=== PATIENT | female | born 1960 | race Caucasian/White ===

== ENCOUNTER 2016-10-25 11:03 | Emergency (ER) | payer OTHER ==
[~2016-10-25] VITALS: Ht 170.2 cm; Wt 75.4 kg
[~2016-10-25 11:03] MED LIST: AZEL30SP NAE; BUDE0.09 PO; CETI10TA84 PO; CLR10 PO; COLE1TAB5 PO; DILT-113 PO; FERR325T5 PO
[2016-10-25 11:11] VITALS: TEMP 36.8; Ht 170.2 cm; Wt 75.4 kg
[2016-10-25] MEDS ORDERED: RANI150T2 PO (11:45)
[2016-10-25] MEDS ORDERED: WLLXL300 PO (11:45)
[2016-10-25] MEDS ORDERED: FLUO20CA36 PO (11:45)
[2016-10-25] MEDS ORDERED: ADAL40KI PO (11:45)
[2016-10-25] MEDS ORDERED: ONDANSETRON INJ 2 MG/ML 2 ML VIAL IV STA (11:52)
[2016-10-25] MEDS ORDERED: MECLIZINE HCL 25 MG TAB PO STA (11:52)
[2016-10-25] MEDS ORDERED: SODIUM CHLORIDE 0.9% 1000ML 1,000 ML IV STA (11:52)
[2016-10-25 12:28] LABS: BASO % 0.2 %; BASO ABS # 0.02 K/uL (0-0.2); COMPLETE YES; EOS % 0.1 %; HEMATOCRIT 43.6 % (37-47); IG% 0.3 %; LYMPH % 11.6 %; LYMPH ABS # 1.15 K/uL (1.2-3.4); MEAN CELL VOLUME 87.4 fL (80-100); MEAN CORPUSCULAR HEMOGLOBIN 29.3 pg (25-34); MEAN CORPUSCULAR HGB CONC 33.5 g/dl (32-36); MEAN PLATELET VOLUME 10.3 fL (7.4-10.4); NEUT % 85.8 %; PLATELET COUNT 224 K/uL (130-400); RED BLOOD COUNT 4.99 M/uL (4.2-5.4); WHITE BLOOD COUNT 9.93 K/uL (4.8-10.8)
[2016-10-25 12:57] LABS: BUN/CREATININE RATIO 16.1 (10-20)
[2016-10-25] MEDS ORDERED: MECL1TAB42 PO (13:10)
--- NOTE | 2016-10-25 13:11 | EMERGENCY ROOM VISIT NOTE ---
History First contact with patient: 11:45 Chief Complaint: VOMITING Stated Complaint: NAUSEA/VOMITING Nursing Triage Summary: Patient arrived via BLS. Patient was going to work this AM at approximately 0930 had sudden onset of N/V x3. Patient had diarrhea x3. Patient has hx of crohns. Denies CP and SOB. History of Present Illness The patient is a 56 year old female who presents to the Emergency Room via BLS with complaints of dizziness, nausea, vomiting. The patient states that she was going to work at approximately 9:30 this morning and had a sudden onset of dizziness and then had nausea and vomiting 3. The patient also states that she had 3 loose bowel movements but that is not abnormal for her since she has Crohn's disease. The patient denies any abdominal pain, fever. 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 She has never had vertigo in the past. The patient denies any chest pain or shortness of breath. Review of Systems 10 system review was performed and was negative unless stated otherwise history of present illness. Past Medical/Surgical History Crohn's disease Social History Smoking Status: Never Smoker Marital Status: Housing Status: lives with family Occupation Status: employed Current/Historical Medications Scheduled Adalimumab (Humira Pen), 0.8 ML PO Q2WKS Azelastine Hcl-Fluticasone Pro (Dymista), 1 SPRY [place]IL[place] BID Bupropion HCl (Bupropion HCl Xl), 300 MG PO DAILY Cetirizine (Zyrtec), 10 MG PO DAILY Colestipol Hcl (Colestipol Hcl), 1 TAB PO BID Diltiazem Hcl Ext Rel (Tiazac), 180 MG PO QAM Ferrous Sulfate (Ferrous Sulfate), 1 TAB PO BID Ranitidine HCl (Ranitidine HCl), 150 MG PO BID Scheduled PRN Loratadine (Claritin), 10 MG PO DAILY PRN for ALLERGIES Physical Exam Vital Signs Date Time Temp Pulse Resp B/P (MAP) Pulse Ox O2 Delivery O2 Flow Rate FiO2 10/25/16 12:31 86 18 156/69 98 Room Air 10/25/16 11:11 36.8 84 18 155/93 97 Room Air Physical Exam GENERAL: Patient is alert oriented she is actively vomiting. MENTAL STATUS: Alert and oriented 3. EYES: PERRLA. EOMs intact. EARS: Canals clear. TMs without fluid level noted. NECK: Supple, no lymphadenopathy noted. No carotid bruits noted. LUNGS: Clear auscultation without wheezes rales or rhonchi. CARDIAC: Regular rate and rhythm without murmur. Pulses is full and equal throughout. ABDOMEN: Positive bowel sounds all 4 quadrants. Soft, nontender to palpation without organomegaly or masses. NEURO: Grossly intact Medical Decision & Procedures Laboratory Results 10/25/16 12:08 Red Blood Count 4.99, Mean Corpuscular Volume 87.4, Mean Corpuscular Hemoglobin 29.3, Mean Corpuscular Hemoglobin Concent 33.5, Mean Platelet Volume 10.3, Neutrophils (%) (Auto) 85.8, Lymphocytes (%) (Auto) 11.6, Monocytes (%) (Auto) 2.0, Eosinophils (%) (Auto) 0.1, Basophils (%) (Auto) 0.2, Neutrophils # (Auto) 8.52, Lymphocytes # (Auto) 1.15, Monocytes # (Auto) 0.20, Eosinophils # (Auto) 0.01, Basophils # (Auto) 0.02 10/25/16 12:08 Test 10/25/16 12:08 White Blood Count 9.93 K/uL (4.8-10.8) Red Blood Count 4.99 M/uL (4.2-5.4) Hemoglobin 14.6 g/dL (12.0-16.0) Hematocrit 43.6 % (37-47) Mean Corpuscular Volume 87.4 fL (80-100) Mean Corpuscular Hemoglobin 29.3 pg (25-34) Mean Corpuscular Hemoglobin Concent 33.5 g/dl (32-36) Platelet Count 224 K/uL (130-400) Mean Platelet Volume 10.3 fL (7.4-10.4) Neutrophils (%) (Auto) 85.8 % Lymphocytes (%) (Auto) 11.6 % Monocytes (%) (Auto) 2.0 % Eosinophils (%) (Auto) 0.1 % Basophils (%) (Auto) 0.2 % Neutrophils # (Auto) 8.52 K/uL (1.4-6.5) Lymphocytes # (Auto) 1.15 K/uL (1.2-3.4) Monocytes # (Auto) 0.20 K/uL (0.11-0.59) Eosinophils # (Auto) 0.01 K/uL (0-0.5) Basophils # (Auto) 0.02 K/uL (0-0.2) RDW Standard Deviation 42.3 fL (36.4-46.3) RDW Coefficient of Variation 13.2 % (11.5-14.5) Immature Granulocyte % (Auto) 0.3 % Immature Granulocyte # (Auto) 0.03 K/uL (0.00-0.02) Anion Gap 7.0 mmol/L (3-11) Est Creatinine Clear Calc Drug Dose 66.6 ml/min Estimated GFR () 72.9 Estimated GFR (Non- 62.9 BUN/Creatinine Ratio 16.1 (10-20) Calcium Level 9.0 mg/dl (8.5-10.1) Total Bilirubin 0.6 mg/dl (0.2-1) Direct Bilirubin 0.1 mg/dl (0-0.2) Aspartate Amino Transf (AST/SGOT) 30 U/L (15-37) Alanine Aminotransferase (ALT/SGPT) 33 U/L (12-78) Alkaline Phosphatase 76 U/L (45-117) Total Protein 7.7 gm/dl (6.4-8.2) Albumin 4.0 gm/dl (3.4-5.0) Lipase 104 U/L (73-393) Medications Administered Medications (Trade) Dose Ordered Sig/Zana Route Start Time Stop Time Status Last Admin Dose Admin Sodium Chloride 1,000 ml @ 999 mls/hr Q1H1M STAT IV 10/25/16 11:52 10/25/16 12:52 DC 10/25/16 12:30 999 MLS/HR Ondansetron HCl (Zofran Inj) 4 mg NOW STAT IV 10/25/16 11:52 10/25/16 11:54 DC 10/25/16 12:30 4 MG Meclizine HCl (Antivert Tab) 25 mg NOW STAT PO 10/25/16 11:52 10/25/16 11:54 DC 10/25/16 12:30 25 MG ED Course The patient was evaluated. The patient's EMR medication list were reviewed. IV access was obtained. The patient was given 1 L normal saline wide-open. The patient was given Zofran 4 mg IV and Antivert 25 mg by mouth. CBC and differential, renal profile, LFTs and lipase levels were ordered. Labs are reviewed and were unremarkable. The patient was reevaluated was feeling much better. The patient was discharged home in stable condition. Medical Decision Differential diagnosis include viral gastroenteritis, vertigo, acute labyrinthitis [place] [facility] Monitoring [facility] Search Results: patient reviewed within database Medication Reconcilliation Current Medication List: was personally reviewed by me Blood Pressure Screening Patient's blood pressure: Elevated blood pressure Blood pressure disposition: Elevated BP felt to be situational Impression Primary Impression: Vertigo Additional Impression: Vomiting Departure Information Dispostion Home / Self-Care Condition GOOD Prescriptions Meclizine Hcl (MECLIZINE HCL) 25 Mg Tab 1 TAB PO TID Y for Dizziness or Vertigo for 10 Days, #30 TAB Prov: Cristina Killian PA-C 10/25/16 Referrals Darnell Kevin M.D. (PCP) Forms HOME CARE DOCUMENTATION FORM, IMPORTANT VISIT INFORMATION Patient Instructions My [facility] Additional Instructions Keep her head still as possible. Take meclizine as needed for dizziness which also prevent nausea and vomiting. Off work for 2 days. If symptoms persist, follow-up with your family physician for further evaluation. Work Instructions Return To Work: 2 days Problem Qualifiers Additional Impression: Vomiting Vomiting type: unspecified Vomiting Intractability: unspecified Nausea presence: with nausea Qualified Codes: R11.2 - Nausea with vomiting, unspecified
[2016-10-25 13:30] VITALS: BP 143/78; PULSE 88; O2SAT 100
== END 2016-10-25 13:32 | disposition home or self-care (01) ==
LOC: EDBD 11:03 → C.EDC 11:03
DX: R42 Dizziness and giddiness (principal); R11.10 Vomiting, unspecified; K50.90 Crohn's disease, unspecified, without complications; Z79.899 Other long term (current) drug therapy

== ENCOUNTER → 2017-06-23 | Day surgery (SDC) | payer OTHER ==
[2017-06-05 12:54] VITALS: Ht 170.2 cm; Wt 72.7 kg
[~2017-06-23] VITALS: Ht 170.2 cm; Wt 72.7 kg
[~2017-06-23] MED LIST changes: +ADAL40KI PO; -AZEL30SP NAE; -BUDE0.09 PO; -DILT-113 PO; +DILT120C68 PO; +LIDOCAINE HCL 2% 2 ML VIAL (20MG/ML) ONE; +MULT1CAP7; +PROPOFOL IV EMULSION 10 MG/ML 20 ML VIAL IV ONE; +RANI150T2 PO; +SODIUM CHLORIDE 0.9% 500ML 500 ML IV ONE; +WLLXL300 PO
--- NOTE | 2017-06-23 08:25 | Endo History and Physical ---
History & Physical Date of Service: Jun 23, 2017. Chief Complaint: Crohn's disease Referring Physician: Dr. Kevin History of Present Illness 57 yo CF who presents for colonoscopy secondary to Crohn's Disease. Past Medical History Arthritis, Gastrointestinal Disorder, Anxiety, Reflux, Heart Disease, Hypertension, Kidney Disease, Depression Past Surgical History Hx Cardiac Surgery: No Hx Internal Defibrillator: No Hx Pacemaker: No Hx Abdominal Surgery: Yes (RECTAL FISTULA REPAIR, COLON RESECTION) Hx of Implantable Prosthesis: No Hx Post-Op Nausea and Vomiting: No Hx Cancer Surgery: No Hx Thoracic Surgery: No Hx Orthopedic: Yes (LUMBAR SURGERY X2) Hx Urinary Tract Surgery: No Family History None Social History Smoking Status: Never Smoker Hx Substance Use: No Hx Alcohol Use: No Allergies Coded Allergies: Nitrofurantoin (Verified Allergy, Unknown, PT DOES NOT REMEMBER REACTION, 06/05/17) Propoxyphene (Verified Allergy, Unknown, CAN TAKE TYLENOL, 06/05/17) Sulfa Antibiotics (Verified Allergy, Unknown, PT DOES NOT REMEMBER REACTION, 06/23/17) Trimethoprim (Verified Allergy, Unknown, ., 06/05/17) Meperidine (Verified Adverse Reaction, Mild, NAUSEA, 06/23/17) Oxycodone (Verified Adverse Reaction, Mild, NAUSEA, 06/23/17) Current Medications Reported Home Medications Medications Dose Route/Sig Max Daily Dose Days Date Category Tiazac (Diltiazem HCl) 120 Mg Capcr 120 Mg PO QAM 06/05/17 Reported Humira Pen (Adalimumab) 40 Mg/0.8 Ml Kit 0.8 Ml PO Q2WKS 10/25/16 Reported Bupropion HCl Xl (Bupropion HCl) 300 Mg Tabcr 300 Mg PO QAM 10/25/16 Reported Ranitidine HCl 150 Mg Tab 150 Mg PO BID 10/25/16 Reported Zyrtec (Cetirizine HCl) 10 Mg Tab 10 Mg PO DAILY 06/19/15 Reported Colestipol Hcl 1 Gm Tab 1 Tab PO BID 05/29/15 Reported Ferrous Sulfate 325 Mg Tab 1 Tab PO BID 05/29/15 Reported Claritin (Loratadine) 10 Mg Tab 10 Mg PO DAILY PRN 09/09/13 Reported Vital Signs Weight (Kilograms): 72.73 Height (Feet): 5 Height (Inches): 7 Physical Exam General Appearance: WD/WN, no apparent distress Respiratory/Chest: Auscultation: breath sounds normal Cardiovascular: Heart Auscultation: RRR Abdomen: Bowel Sounds: normal Inspection & Palpation: soft, non-distended, no tenderness, guarding & rebound Assessment and Plan Assessment: 57 yo CF who presents for colonoscopy secondary to Crohn's disease. Plan: Proceed with colonoscopy.
--- NOTE | 2017-06-23 09:05 | GI REPORT ---
Procedure Date: 06/23/2017 8:33 AM Procedure: Colonoscopy Indications: Crohn's disease of the small bowel Medicines: Monitored Anesthesia Care Complications: No immediate complications. Estimated Blood Loss: Estimated blood loss: none. Procedure: Pre-Anesthesia Assessment: - Prior to the procedure, a History and Physical was performed, and patient medications and allergies were reviewed. The patient's tolerance of previous anesthesia was also reviewed. The risks and benefits of the procedure and the sedation options and risks were discussed with the patient. All questions were answered, and informed consent was obtained. Prior Anticoagulants: The patient has taken no previous anticoagulant or antiplatelet agents. ASA Grade Assessment: II - A patient with mild systemic disease. After reviewing the risks and benefits, the patient was deemed in satisfactory condition to undergo the procedure. After I obtained informed consent, the scope was passed under direct vision. Throughout the procedure, the patient's blood pressure, pulse, and oxygen saturations were monitored continuously. The scope was introduced through the anus and advanced to the ileocolonic anastomosis. The colonoscopy was performed without difficulty. The patient tolerated the procedure well. The quality of the bowel preparation was good. The terminal ileum and the rectum were photographed. Findings: The perianal and digital rectal examinations were normal. There was evidence of a prior end-to-side ileo-colonic anastomosis in the ascending colon. This was patent and was characterized by ulceration. The anastomosis was traversed. This was biopsied with a cold forceps for histology. Impression: - Patent end-to-side ileo-colonic anastomosis, characterized by ulceration. Biopsied. Recommendation: - Resume previous diet. - Continue present medications. - Repeat colonoscopy for surveillance based on pathology results. - Return to primary care physician as previously scheduled. Vahid Beckwith DO 06/23/2017 9:05:09 AM This report has been signed electronically. Note Initiated On: 06/23/2017 8:33 AM I attest to the content of the Intraoperative Record and orders documented therein, exceptions below
--- NOTE | 2017-06-23 09:07 | Discharge Instructions ---
Endoscopy Patient Instructions Date / Procedure(s) Performed Jun 23, 2017. Colonoscopy Allergy Information Coded Allergies: Nitrofurantoin (Verified Allergy, Unknown, PT DOES NOT REMEMBER REACTION, 06/23/17) Propoxyphene (Verified Allergy, Unknown, CAN TAKE TYLENOL, 06/23/17) Sulfa Antibiotics (Verified Allergy, Unknown, PT DOES NOT REMEMBER REACTION, 06/23/17) Trimethoprim (Verified Allergy, Unknown, ., 06/23/17) Meperidine (Verified Adverse Reaction, Mild, NAUSEA, 06/23/17) Oxycodone (Verified Adverse Reaction, Mild, NAUSEA, 06/23/17) Discharge Date / Findings Jun 23, 2017. Ulcer at ileocolonic anastomosis Crohn's Ileitis Medication Instructions OK to resume all medications today as prescribed Reported Home Medications Medications Dose Route/Sig Max Daily Dose Days Date Category Multi For Her 50+ (Multiple Vitamins W/ Minerals) 1 Cap Cap 06/23/17 Reported Tiazac (Diltiazem HCl) 120 Mg Capcr 120 Mg PO QAM 06/05/17 Reported Humira Pen (Adalimumab) 40 Mg/0.8 Ml Kit 0.8 Ml PO Q2WKS 10/25/16 Reported Bupropion HCl Xl (Bupropion HCl) 300 Mg Tabcr 300 Mg PO QAM 10/25/16 Reported Ranitidine HCl 150 Mg Tab 150 Mg PO BID 10/25/16 Reported Zyrtec (Cetirizine HCl) 10 Mg Tab 10 Mg PO DAILY 06/19/15 Reported Colestipol Hcl 1 Gm Tab 1 Tab PO BID 05/29/15 Reported Ferrous Sulfate 325 Mg Tab 1 Tab PO BID 05/29/15 Reported Claritin (Loratadine) 10 Mg Tab 10 Mg PO DAILY PRN 09/09/13 Reported Provider Instructions Activity Restrictions - No exercising or heavy lifting for 24 hours. - Do not drink alcohol the day of the procedure. - Do not drive a car or operate machinery until the day after the procedure. - Do not make any important decisions or sign important papers in 24 hours after the procedure. Following Day: - Return to full activity which may include returning to work/school. Diet Start your diet with liquids and light foods (jello, soup, juice, toast). Then eat your usual diet if not nauseated. Treatment For Common After Affects For mild abdominal pain, bloating, or excessive gas: - Rest - Eat lightly - Lie on right side Follow-Up Information Follow-up with Darnell Kevin as scheduled Anesthesia Information What You Should Know You have had a procedure that required some medicine to reduce anxiety and discomfort. This treatment is called moderate sedation. After receiving the treatment, you may be sleepy, but you will be able to breathe on your own. The effects of the treatment may last for several hours. Follow these instructions along with Activity/Diet recommendations noted above: * Do NOT do anything where dizziness or clumsiness would be dangerous. * Rest quietly at home today, then you can be up and about tomorrow. * Have a responsible person stay with you the rest of today. * You may have had an I.V. today. If so, you may take the dressing off later today. Recommendations Call your doctor if: * Trouble breathing * Continuous vomiting for more than 24 hours * Temperature above 101 degrees * Severe abdominal pain or bloating * Pain not relieved by pain medicine ordered * There is increased drainage or redness from any incision * A large amount of rectal bleeding greater than 2-3 tablespoons. (If you had a polyp/s removed or have hemorrhoids, a small amount of blood - from the rectum is to be expected.) * You have any unanswered questions or concerns. IN THE EVENT OF A SERIOUS EMERGENCY, GO TO THE NEAREST EMERGENCY ROOM Your discharge instructions were prepared by provider Vahid Beckwith. Patient Instructions Signature Page Mary Kate Cabello Patient (or Guardian) Signature/Date: I have read and understand the instructions given to me by my caregivers. Caregiver/RN/Doctor Signature/Date: The above-named patient and/or guardian has received patient instructions on this date. + Original Patient Signature Page (only) stays with chart. Please make copy for patient.
[2017-06-23 09:34] VITALS: BP 137/79; PULSE 78; O2SAT 100
--- NOTE | 2017-06-23 09:52 | Anesthesiology Progress Note ---
Anesthesia Post Op Note Date & Time Jun 23, 2017 at 09:52 Vital Signs Pain Intensity: 0 Vital Signs Past 12 Hours Date Time Temp Pulse Resp B/P (MAP) Pulse Ox O2 Delivery O2 Flow Rate FiO2 06/23/17 09:34 78 18 137/79 (98) 100 Room Air 06/23/17 09:15 79 18 134/96 (109) 100 Room Air 06/23/17 09:03 36.7 93 16 104/70 (81) 100 Room Air 06/23/17 08:37 37.0 82 18 154/73 (100) 99 Room Air Notes Mental Status: alert / awake / arousable, participated in evaluation Pt Amnestic to Procedure: Yes Nausea / Vomiting: adequately controlled Pain: adequately controlled Airway Patency, RR, SpO2: stable & adequate BP & HR: stable & adequate Hydration State: stable & adequate Anesthetic Complications: no major complications apparent
== END | disposition home or self-care (01) ==
LOC: C.GI 07:58
PROVIDERS: ATTEND Internal Medicine
DX: K50.90 Crohn's disease, unspecified, without complications (principal); M19.90 Unspecified osteoarthritis, unspecified site; F41.9 Anxiety disorder, unspecified; K21.9 Gastro-esophageal reflux disease without esophagitis; I10 Essential (primary) hypertension; N18.9 Chronic kidney disease, unspecified; F32.9 Major depressive disorder, single episode, unspecified; Z88.2 Allergy status to sulfonamides; Z88.5 Allergy status to narcotic agent; Z88.1 Allergy status to other antibiotic agents

== ENCOUNTER 2021-12-09 11:48 | Observation (INO) ==
[2021-12-09] MEDS ORDERED: SODIUM CHLORIDE 0.9% 500 ML IV STA (12:04)
[2021-12-09 13:07] LABS: Troponin I High Sensitivity 6.6 pg/ml (0-14)
[2021-12-09 13:13] LABS: Basophils # (auto) 0.03 K/uL (0-0.2); Basophils % (auto) 0.4 %; Eosinophils # (auto) 0.01 K/uL (0-0.50); Eosinophils % (auto) 0.1 %; Hematocrit (blood only) 42.6 % (34.1-44.9); Hemoglobin 14.3 g/dl (12.0-16.0); Immature Granulocytes # (auto) 0.05 K/uL (0.00-0.02); Immature Granulocytes % (auto) 0.7 %; Lymphocytes # (auto) 1.47 K/uL (1.2-3.4); Lymphocytes % (auto) 19.4 %; Mean Corpuscular Hemoglobin 29.7 pg (25.0-34.0); Mean Corpuscular Hgb Conc 33.6 g/dL (32.0-36.0); Mean Corpuscular Volume 88.6 fL (80.0-100.0); Mean Platelet Volume 9.8 fL (9.4-12.3); Monocytes # (auto) 0.46 K/uL (0.24-0.82); Monocytes % (auto) 6.1 %; Neutrophils # (auto) 5.55 K/uL (1.4-6.5); Neutrophils % (auto) 73.3 %; Platelet Count 207 K/uL (130-400); RDW Coefficient of Variation 12.6 % (11.5-14.5); RDW Standard Deviation 41.3 fL (36.4-46.3); Red Blood Count 4.81 M/uL (3.93-5.22); White Blood Count 7.57 K/ul (4.8-10.8)
[2021-12-09 13:59] LABS: Appearance Urine Clear (Clear); Bacteria Urine Automated Negative (Negative); Bilirubin Urine Negative (Negative); Blood Urine 2+ (Negative); Cast Urine Automated 0 /lpf (0-5); Color Urine Yellow; Glucose Urine UA Negative (Negative); Ketones Urine Trace (Negative); Leukocyte Esterase Urine Trace (Negative); Nitrite Urine Negative (Negative); Protein Urine Negative (Negative); Specific Gravity Urine 1.011 (1.000-1.030); Urobilinogen Urine Negative (Negative); pH Urine 5.5 (4.5-7.5)
[2021-12-09 14:12] LABS: Alanine Aminotransferase 16 U/L (7-52); Albumin Globulin Ratio 1.1 (0.9-2); Alkaline Phosphatase 54 U/L (34-104); Anion Gap 16 (3-11); Aspartate Aminotransferase 22 U/L (13-39); BUN Creatinine Ratio 21.3 (10-20); Bilirubin,Total 0.7 mg/dl (0.2-1.0); Blood Urea Nitrogen 19 mg/dl (6-23); C Reactive Protein < 0.50 mg/dl (0-0.5); Calcium 9.2 mg/dl (8.5-10.1); Carbon Dioxide 17 mmol/L (21-32); Chloride 105 mmol/L (98-107); Creatinine Clr Calc Pharmacy 64.6 ml/min; Est GFR (African American) 81.1 ml/min; Globulin 3.8 gm/dl (2.5-4.0); Glucose 98 mg/dl (70-99(Fasting)); Lipase 39 U/L (11-82); Potassium 3.4 mmol/L (3.5-5.1); Sodium 138 mmol/L (136-145); Total Protein 7.8 gm/dl (6.0-8.3)
[2021-12-09] MEDS ORDERED: OPTIRAY 350 100ml IV ONE (14:27)
--- NOTE | 2021-12-09 14:30 | Emergency Department Note ---
Impression & Plan Nausea, vomiting and diarrhea, Crohns disease ED Provider Note Provider: Nirav Dumont MD DATE OF SERVICE: 12/09/2021 CHIEF COMPLAINT: Nausea, diarrhea, weakness HISTORY OF PRESENT ILLNESS: Patient is a 61-year-old female history of Crohn's disease Mr. Abhi Wise last day or 2 secondary to illness. Begin to have illness symptoms this past week with nausea and vomiting developed diarrhea overnight. No blood in this. States the vomit has been green at times. Denies significant abdominal pain. Reports some subjective fever and chills. Denies chest pain or shortness of breath to me. Feels generally weak. No sick contacts reported. Received some Zofran and IV fluid in route and states she is feeling a bit better with this but still quite weak. EMS report the patient did have some episode of bigeminy in route. Does relate some urinary symptoms. REVIEW OF SYSTEMS: A total of 10 review of systems was obtained and negative except as stated above in the HPI. PAST MEDICAL HISTORY: As noted above MEDICATIONS: Medications reviewed SOCIAL HISTORY: Lives at home with PHYSICAL EXAM: GENERAL: alert and oriented in no acute distress on stretcher resting with eyes closed Head: normocephalic and atraumatic EYES: No injection, discharge or icterus. NECK: Trachea midline. ENT: Mucous membranes pink and moist. LUNGS: Airway patent. No retractions. Breath sounds clear HEART: Regular rate and rhythm. No chest wall tenderness ABDOMEN: Soft and non-tender, without guarding or rebound. SKIN: Acyanotic, warm, dry, without rashes EXTREMITIES: Without swelling, tenderness or deformity NEUROLOGICAL: No focal deficits. No aphasia. No facial droop or slurred speech. EK bpm NSR with a PVC noted without acute ST segment elevation and some nonspecific inferior lateral T wave changes. QTc 439. CONTINUOUS CARDIAC MONITORING: was ordered and showed a heart rate of 60s-70s bpm in normal sinus rhythm Patient's laboratory studies and imaging reviewed. Differential includes gastrointestinal, infection, dehydration, metabolic abnormality, hypo/hyperglycemia, electrolyte disturbance, anemia, hypoxia, cardiac sources, intracerebral event, toxicologic, neurologic, as well as other pathologies. IMPRESSION/MEDICAL DECISION MAKING: Patient with significant history of Crohn's disease. Inflammatory markers and CT of the abdomen pelvis will be obtained. ESR and CRP not significantly elevated. Urinalysis even with urinary symptoms is not that impressive. Negative COVID test. No evidence of hepatitis or pancreatitis. Some slight anion gap is noted without evidence of acute kidney injury. Question some dehydrated state and given IV fluids here. No significant anemia or leukocytosis on blood work. 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 No significant evidence of this here noted. No troponin elevation. CT scan of the abdomen pelvis per radiology questions a nonspecific colitis without bowel obstruction noted. Stool culture is pending. Doubt this is Crohn's given lack of inflammatory marker elevation. Discussed with GI who agrees and will defer any steroids at this point. Does not report significant risk factors at this time for C. difficile. Patient not tolerating oral intake well and she states she is still nauseous and does not feel that she is throwing up to go home. Discussed with her possible options of outpatient trial of therapy versus observation. Per her wishes the hospitalist was contacted. DIAGNOSIS: Gastroenteritis DISPOSITION: Hospitalist will evaluate Patient was agreeable with this plan. Past Med/Surg History Medical History (Updated 12/09/21 @ 19:14 by Nirav Dumont M.D.) Anxiety Chronic back pain Chronic kidney disease stage 3 -- follows with Nephrology [facility] ([place], [place]) Crohns disease Depression GERD (gastroesophageal reflux disease) Hypertension Scoliosis Vertigo hx Surgical History (Updated 12/09/21 @ 17:43 by Dayan Palacio PA-C) History of back surgery History of colonoscopy History of esophagogastroduodenoscopy (EGD) History of partial colectomy 2012 [facility] [place] 2/2 crohns S/P cholecystectomy S/P small bowel resection 1982 2 ft removed Family History (Updated 12/09/21 @ 17:43 by Dayan Palacio PA-C) Daughter Diabetes Nephrolithiasis Father Pancreatic cancer Social History Smoking Status: Never smoker Second Hand Exposure: No; Hx Alcohol Use: No Hx Substance Use: No Preferred Language: Iranian Communication Ability: Effective Reel Repairer Required: No Beliefs That Will Affect Care: None marital status: Current Living Situation: Spouse current occupational status: employed Feels Safe at Home: Yes Allergies Allergies Allergy/AdvReac Type Severity Reaction Status Date / Time aspirin Allergy Severe TRIGGER Verified 12/09/21 12:06 [employer] nitrofurantoin Allergy Unknown Unknown Verified 12/09/21 12:06 propoxyphene Allergy Unknown CAN TAKE Verified 12/09/21 12:06 TYLENOL Sulfa (Sulfonamide Allergy Unknown PT DOES Verified 12/09/21 12:06 Antibiotics) NOT REMEMBER REACTION trimethoprim Allergy Unknown Unknown Verified 12/09/21 12:06 meperidine AdvReac Mild NAUSEA Verified 12/09/21 12:06 oxycodone AdvReac Mild Unknown Verified 12/09/21 12:06 hydrocodone AdvReac Unknown Unknown Verified 12/09/21 12:06 sulfamethoxazole AdvReac Unknown Unknown Verified 12/09/21 12:06 [From ] Home Meds Home Medications Medication Instructions Recorded Confirmed cranberry 400 mg capsule 400 mg PO DAILY PRN UTI 01/26/18 12/09/21 [id number] 1 tab PO QAM 01/26/18 12/09/21 tablet (Multivitamin 50 Plus tablet) clonazepam 0.5 mg tablet (Klonopin) 0.5 mg PO HS PRN Anxiety 10/25/19 12/09/21 diltiazem HCl 180 mg capsule,24 180 mg PO QAM 10/25/19 12/09/21 hr,extended release ferrous sulfate 325 mg (65 mg 325 mg PO DAILY 10/25/19 12/09/21 iron) tablet metoprolol succinate 25 mg 25 mg PO HS 10/25/19 12/09/21 tablet,extended release 24 hr potassium chloride 10 mEq 10 meq PO QAM 10/25/19 12/09/21 tablet,extended release (Klor-Con) calcium carbonate 600 mg-vitamin 1 tab PO DAILY 12/09/21 12/09/21 D3 10 mcg (400 unit) tablet (Calcium 600 + D(3)) cetirizine 10 mg tablet (Allergy 10 mg PO DAILY 12/09/21 12/09/21 Relief (cetirizine)) cholecalciferol (vitamin D3) 125 125 mcg PO DAILY 12/09/21 12/09/21 mcg (5,000 unit) capsule cyanocobalamin (vitamin B-12) 1,000 mcg PO QAM 12/09/21 12/09/21 1,000 mcg tablet (Vitamin B-12) dicyclomine 10 mg capsule 10 mg PO BID 12/09/21 12/09/21 omega 1-hzw-dkj-fish oil 1,200 mg 1 cap PO BID 12/09/21 12/09/21 (144 mg-216 mg) capsule (Fish Oil) pantoprazole 40 mg tablet,delayed 40 mg PO QAM 12/09/21 12/09/21 release tolterodine 2 mg capsule,extended 2 mg PO QAM 12/09/21 12/09/21 release 24 hr venlafaxine 75 mg capsule,extended 75 mg PO DAILY 12/09/21 12/09/21 release 24 hr zinc gluconate 50 mg tablet 50 mg PO QAM 12/09/21 12/09/21 Previous Rx's Medication Instructions Recorded Humira(CF) Pen 40 mg/0.4 mL 40 mg (0.4 mL) subcut .weekly #2 ea 02/19/21 subcutaneous kit (adalimumab) diphenoxylate-atropine 2.5 1 tab PO .COMPLEX PRN diarrhea 04/17/21 mg-0.025 mg tablet (Lomotil) #360 tabs colesevelam 625 mg tablet (WelChol) 2,500 mg PO QPM #360 tabs 12/06/21 Results & Data (ED) Vital Signs Vital Signs - 24 hr 12/09/21 11:59 12/09/21 15:20 12/09/21 13:00 Temperature 37.5 C Temperature Source Oral Pulse Rate 74 71 Pulse Rate [Left Finger] 77 Pulse Rhythm Regular Pulse Rhythm [Left Finger] Regular Pulse Strength Normal Pulse Strength [Left Finger] Normal Respiratory Rate 16 16 18 Respiratory Effort / Characteristics Non-Labored Spontaneous Respiratory Depth Normal Respiratory Pattern Regular Blood Pressure 140/75 146/82 H Blood Pressure [Left Arm] 134/72 Blood Pressure Mean 96 103 Blood Pressure Mean [Left Arm] 92 Blood Pressure Position Lying Pulse Oximetry 98 96 98 Oxygen Delivery Method Room Air Room Air Sepsis Recent Fever Within 48 Hours No Sepsis New/Unexplained Change in Mental Status No Sepsis Action Taken by Nursing No Action Required 12/09/21 16:54 12/09/21 17:01 12/09/21 17:30 Temperature Temperature Source Pulse Rate 75 77 71 Pulse Rate [Left Finger] Pulse Rhythm Pulse Rhythm [Left Finger] Pulse Strength Pulse Strength [Left Finger] Respiratory Rate 16 16 16 Respiratory Effort / Characteristics Respiratory Depth Respiratory Pattern Blood Pressure 131/68 139/54 L 139/69 Blood Pressure [Left Arm] Blood Pressure Mean 89 82 92 Blood Pressure Mean [Left Arm] Blood Pressure Position Pulse Oximetry 99 99 97 Oxygen Delivery Method Sepsis Recent Fever Within 48 Hours Sepsis New/Unexplained Change in Mental Status Sepsis Action Taken by Nursing 12/09/21 18:00 Temperature Temperature Source Pulse Rate 68 Pulse Rate [Left Finger] Pulse Rhythm Pulse Rhythm [Left Finger] Pulse Strength Pulse Strength [Left Finger] Respiratory Rate 16 Respiratory Effort / Characteristics Respiratory Depth Respiratory Pattern Blood Pressure 152/78 H Blood Pressure [Left Arm] Blood Pressure Mean 102 Blood Pressure Mean [Left Arm] Blood Pressure Position Pulse Oximetry 99 Oxygen Delivery Method Sepsis Recent Fever Within 48 Hours Sepsis New/Unexplained Change in Mental Status Sepsis Action Taken by Nursing Laboratory Data Result diagrams: 12/09/21 13:00 12/09/21 12:17 Lab Results 12/09/21 12/09/21 12/09/21 Range/Units 12:17 12:17 12:17 WBC Cancelled RBC Cancelled Hgb Cancelled Hct Cancelled MCV Cancelled MCH Cancelled MCHC Cancelled RDW Std Deviation Cancelled RDW Coeff of Phuong Cancelled Plt Count Cancelled MPV Cancelled Immature Gran % (Auto) Cancelled Neut % (Auto) Cancelled Lymph % (Auto) Cancelled [place] % (Auto) Cancelled Eos % (Auto) Cancelled Baso % (Auto) Cancelled Neut # (Auto) Cancelled Lymph # (Auto) Cancelled [place] # (Auto) Cancelled Eos # (Auto) Cancelled Baso # (Auto) Cancelled Immature Gran # (Auto) Cancelled Absolute Nucleated RBC Cancelled Nucleated RBC % (auto) Cancelled Neutrophils % (Manual) Cancelled Band Neutrophils % Cancelled Lymphocytes % (Manual) Cancelled Prolymphocyte % Cancelled Reactive Lymphs % (Man) Cancelled Monocytes % (Manual) Cancelled Eosinophils % (Manual) Cancelled Basophils % (Manual) Cancelled Metamyelocytes % (Man) Cancelled Myelocytes % (Man) Cancelled Promyelocytes % (Man) Cancelled Blast Cells % (Manual) Cancelled Plasma Cell % (Manual) Cancelled Other Cells % Cancelled Nucleated RBC % Cancelled Neutrophils # (Manual) Cancelled Band Neutrophils # Cancelled Total Absolute Neuts Cancelled Lymphocytes # (Manual) Cancelled Prolymphocyte # Cancelled Reactive Lymphs # Cancelled Total Abs Lymphocytes Cancelled Monocytes # (Manual) Cancelled Eosinophils # (Manual) Cancelled Basophils # (Manual) Cancelled Metamyelocytes # (Man) Cancelled Myelocytes # (Manual) Cancelled Promyelocytes # (Man) Cancelled Blast Cells # (Man) Cancelled Plasma Cell # (Manual) Cancelled Other Cells # Cancelled Nucleated RBCs # (Man) Cancelled Hypersegmented Neuts Cancelled Hyposegmented Neuts Cancelled Hypogranular Neuts Cancelled Large Granular Lymphs Cancelled # Lrg Granular Lymphs Cancelled Hairy Cells Cancelled Smudge Cells Cancelled Toxic Granulation Cancelled Toxic Vacuolation Cancelled Dohle Bodies Cancelled Luciana Rods Cancelled Platelet Estimate Cancelled Hypogranular Platelets Cancelled Clumped Platelets Cancelled Giant Platelets Cancelled Platelet Satelliting Cancelled RBC Morphology Cancelled Polychromasia Cancelled Hypochromasia Cancelled Poikilocytosis Cancelled Basophilic Stippling Cancelled Anisocytosis Cancelled Microcytosis Cancelled Macrocytosis Cancelled Spherocytes Cancelled Pappenheimer Bodies Cancelled Sickle Cells Cancelled Target Cells Cancelled Tear Drop Cells Cancelled Ovalocytes Cancelled Stomatocytes Cancelled [place] Bodies Cancelled Echinocytes Cancelled Acanthocytes (Spur) Cancelled Rouleaux Cancelled RBC Agglutinates Cancelled Schistocytes Cancelled ESR Cancelled Sezary Cell Cancelled Sodium 138 (136-145) mmol/L Potassium 3.4 L (3.5-5.1) mmol/L Chloride 105 (98-107) mmol/L Carbon Dioxide 17 L (21-32) mmol/L Anion Gap 16 H (3-11) BUN 19 (6-23) mg/dl Creatinine 0.89 (0.6-1.2) mg/dl Est Cr Clr Drug Dosing 64.6 ml/min Est GFR ( Amer) 81.1 ml/min Est GFR (Non-Af Amer) 70.0 ml/min BUN/Creatinine Ratio 21.3 H (10-20) Glucose 98 (70-99(Fasting)) mg/dl Calcium 9.2 (8.5-10.1) mg/dl Magnesium 2.0 (1.7-2.4) mg/dl Total Bilirubin 0.7 (0.2-1.0) mg/dl AST 22 (13-39) U/L ALT 16 (7-52) U/L Alkaline Phosphatase 54 (34-104) U/L Troponin I High Sens 6.6 (0-14) pg/ml C-Reactive Protein < 0.50 (0-0.5) mg/dl Total Protein 7.8 (6.0-8.3) gm/dl Albumin 4.0 (3.4-5.0) gm/dl Globulin 3.8 (2.5-4.0) gm/dl Albumin/Globulin Ratio 1.1 (0.9-2) Lipase 39 (11-82) U/L Urine Color Urine Appearance (Clear) Urine pH (4.5-7.5) Ur Specific Roberts (1.000-1.030) Urine Protein (Negative) Urine Glucose (UA) (Negative) Urine Ketones (Negative) Urine Blood (Negative) Urine Nitrite (Negative) Urine Bilirubin (Negative) Urine Urobilinogen (Negative) Ur Leukocyte Esterase (Negative) Urine WBC (Auto) (0-5) /hpf Urine RBC (Auto) (0-4) /hpf U Hyaline Cast (Auto) (0-5) /lpf U Epithel Cells (Auto) (0-5) /lpf Urine Bacteria (Auto) (Negative) SARS-CoV-2, RNA, NAAT (NEGATIVE) Blood Parasites ID Cancelled 12/09/21 12/09/21 12/09/21 Range/Units 12:21 13:00 13:00 WBC 7.57 RBC 4.81 Hgb 14.3 Hct 42.6 MCV 88.6 MCH 29.7 MCHC 33.6 RDW Std Deviation 41.3 RDW Coeff of Phuong 12.6 Plt Count 207 MPV 9.8 Immature Gran % (Auto) 0.7 Neut % (Auto) 73.3 Lymph % (Auto) 19.4 [place]eton % (Auto) 6.1 Eos % (Auto) 0.1 Baso % (Auto) 0.4 Neut # (Auto) 5.55 Lymph # (Auto) 1.47 [place]eton # (Auto) 0.46 Eos # (Auto) 0.01 Baso # (Auto) 0.03 Immature Gran # (Auto) 0.05 H Absolute Nucleated RBC Nucleated RBC % (auto) Neutrophils % (Manual) Band Neutrophils % Lymphocytes % (Manual) Prolymphocyte % Reactive Lymphs % (Man) Monocytes % (Manual) Eosinophils % (Manual) Basophils % (Manual) Metamyelocytes % (Man) Myelocytes % (Man) Promyelocytes % (Man) Blast Cells % (Manual) Plasma Cell % (Manual) Other Cells % Nucleated RBC % Neutrophils # (Manual) Band Neutrophils # Total Absolute Neuts Lymphocytes # (Manual) Prolymphocyte # Reactive Lymphs # Total Abs Lymphocytes Monocytes # (Manual) Eosinophils # (Manual) Basophils # (Manual) Metamyelocytes # (Man) Myelocytes # (Manual) Promyelocytes # (Man) Blast Cells # (Man) Plasma Cell # (Manual) Other Cells # Nucleated RBCs # (Man) Hypersegmented Neuts Hyposegmented Neuts Hypogranular Neuts Large Granular Lymphs # Lrg Granular Lymphs Hairy Cells Smudge Cells Toxic Granulation Toxic Vacuolation Dohle Bodies Luciana Rods Platelet Estimate Hypogranular Platelets Clumped Platelets Giant Platelets Platelet Satelliting RBC Morphology Polychromasia Hypochromasia Poikilocytosis Basophilic Stippling Anisocytosis Microcytosis Macrocytosis Spherocytes Pappenheimer Bodies Sickle Cells Target Cells Tear Drop Cells Ovalocytes Stomatocytes Pantoja[place] Bodies Echinocytes Acanthocytes (Spur) Rouleaux RBC Agglutinates Schistocytes ESR 20 Sezary Cell Sodium (136-145) mmol/L Potassium (3.5-5.1) mmol/L Chloride (98-107) mmol/L Carbon Dioxide (21-32) mmol/L Anion Gap (3-11) BUN (6-23) mg/dl Creatinine (0.6-1.2) mg/dl Est Cr Clr Drug Dosing ml/min Est GFR ( Amer) ml/min Est GFR (Non-Af Amer) ml/min BUN/Creatinine Ratio (10-20) Glucose (70-99(Fasting)) mg/dl Calcium (8.5-10.1) mg/dl Magnesium (1.7-2.4) mg/dl Total Bilirubin (0.2-1.0) mg/dl AST (13-39) U/L ALT (7-52) U/L Alkaline Phosphatase (34-104) U/L Troponin I High Sens (0-14) pg/ml C-Reactive Protein (0-0.5) mg/dl Total Protein (6.0-8.3) gm/dl Albumin (3.4-5.0) gm/dl Globulin (2.5-4.0) gm/dl Albumin/Globulin Ratio (0.9-2) Lipase (11-82) U/L Urine Color Urine Appearance (Clear) Urine pH (4.5-7.5) Ur Specific Roberts (1.000-1.030) Urine Protein (Negative) Urine Glucose (UA) (Negative) Urine Ketones (Negative) Urine Blood (Negative) Urine Nitrite (Negative) Urine Bilirubin (Negative) Urine Urobilinogen (Negative) Ur Leukocyte Esterase (Negative) Urine WBC (Auto) (0-5) /hpf Urine RBC (Auto) (0-4) /hpf U Hyaline Cast (Auto) (0-5) /lpf U Epithel Cells (Auto) (0-5) /lpf Urine Bacteria (Auto) (Negative) SARS-CoV-2, RNA, NAAT NEGATIVE (NEGATIVE) Blood Parasites ID 12/09/21 Range/Units 13:41 WBC RBC Hgb Hct MCV MCH MCHC RDW Std Deviation RDW Coeff of Phuong Plt Count MPV Immature Gran % (Auto) Neut % (Auto) Lymph % (Auto) [place] % (Auto) Eos % (Auto) Baso % (Auto) Neut # (Auto) Lymph # (Auto) [place] # (Auto) Eos # (Auto) Baso # (Auto) Immature Gran # (Auto) Absolute Nucleated RBC Nucleated RBC % (auto) Neutrophils % (Manual) Band Neutrophils % Lymphocytes % (Manual) Prolymphocyte % Reactive Lymphs % (Man) Monocytes % (Manual) Eosinophils % (Manual) Basophils % (Manual) Metamyelocytes % (Man) Myelocytes % (Man) Promyelocytes % (Man) Blast Cells % (Manual) Plasma Cell % (Manual) Other Cells % Nucleated RBC % Neutrophils # (Manual) Band Neutrophils # Total Absolute Neuts Lymphocytes # (Manual) Prolymphocyte # Reactive Lymphs # Total Abs Lymphocytes Monocytes # (Manual) Eosinophils # (Manual) Basophils # (Manual) Metamyelocytes # (Man) Myelocytes # (Manual) Promyelocytes # (Man) Blast Cells # (Man) Plasma Cell # (Manual) Other Cells # Nucleated RBCs # (Man) Hypersegmented Neuts Hyposegmented Neuts Hypogranular Neuts Large Granular Lymphs # Lrg Granular Lymphs Hairy Cells Smudge Cells Toxic Granulation Toxic Vacuolation Dohle Bodies Luciana Rods Platelet Estimate Hypogranular Platelets Clumped Platelets Giant Platelets Platelet Satelliting RBC Morphology Polychromasia Hypochromasia Poikilocytosis Basophilic Stippling Anisocytosis Microcytosis Macrocytosis Spherocytes Pappenheimer Bodies Sickle Cells Target Cells Tear Drop Cells Ovalocytes Stomatocytes Pantoja-[place] Bodies Echinocytes Acanthocytes (Spur) Rouleaux RBC Agglutinates Schistocytes ESR Sezary Cell Sodium (136-145) mmol/L Potassium (3.5-5.1) mmol/L Chloride (98-107) mmol/L Carbon Dioxide (21-32) mmol/L Anion Gap (3-11) BUN (6-23) mg/dl Creatinine (0.6-1.2) mg/dl Est Cr Clr Drug Dosing ml/min Est GFR ( Amer) ml/min Est GFR (Non-Af Amer) ml/min BUN/Creatinine Ratio (10-20) Glucose (70-99(Fasting)) mg/dl Calcium (8.5-10.1) mg/dl Magnesium (1.7-2.4) mg/dl Total Bilirubin (0.2-1.0) mg/dl AST (13-39) U/L ALT (7-52) U/L Alkaline Phosphatase (34-104) U/L Troponin I High Sens (0-14) pg/ml C-Reactive Protein (0-0.5) mg/dl Total Protein (6.0-8.3) gm/dl Albumin (3.4-5.0) gm/dl Globulin (2.5-4.0) gm/dl Albumin/Globulin Ratio (0.9-2) Lipase (11-82) U/L Urine Color Yellow Urine Appearance Clear (Clear) Urine pH 5.5 (4.5-7.5) Ur Specific Roberts 1.011 (1.000-1.030) Urine Protein Negative (Negative) Urine Glucose (UA) Negative (Negative) Urine Ketones Trace H (Negative) Urine Blood 2+ H (Negative) Urine Nitrite Negative (Negative) Urine Bilirubin Negative (Negative) Urine Urobilinogen Negative (Negative) Ur Leukocyte Esterase Trace H (Negative) Urine WBC (Auto) 1-5 (0-5) /hpf Urine RBC (Auto) 5-10 H (0-4) /hpf U Hyaline Cast (Auto) 0 (0-5) /lpf U Epithel Cells (Auto) 10-20 H (0-5) /lpf Urine Bacteria (Auto) Negative (Negative) SARS-CoV-2, RNA, NAAT (NEGATIVE) Blood Parasites ID Administered Medications Lactated Ringer's (Lr) 1,000 mls @ 80 mls/hr IV .[id number] SAMY Stop: 01/08/22 16:14 Last Admin: 12/09/21 16:29 Dose: 80 mls/hr Documented By: MARIS Potassium Chloride (K Thierno / Wtr) 10 meq in 100 mls @ 100 mls/hr IV Q1H SAMY; Protocol Stop: 12/09/21 19:29 Last Infusion: 12/09/21 18:39 Dose: 0 mls/hr Documented By: Admin: 12/09/21 17:59 Dose: 100 mls/hr Documented By: Infusion: 12/09/21 17:59 Dose: 0 mls/hr Documented By: Admin: 12/09/21 17:00 Dose: 100 mls/hr Documented By: TIEN Discontinued Medications Sodium Chloride (Nss) 500 mls @ 999 mls/hr IV .Q31M STA Stop: 12/09/21 12:34 Last Infusion: 12/09/21 13:17 Dose: 0 mls/hr Documented By: Admin: 12/09/21 12:24 Dose: 999 mls/hr Documented By: TIEN Ioversol (Optiray 350 100ml) 95 ml IV ONCE ONE Stop: 12/09/21 14:28 Last Admin: 12/09/21 14:31 Dose: 95 ml Documented By: ART Ondansetron HCl (Ondansetron Inj 2 Mg/Ml 2 Ml Vial) 4 mg IV NOW STA Stop: 12/09/21 16:10 Last Admin: 12/09/21 16:29 Dose: 4 mg Documented By: MARIS Imaging Data Radiologist's Impression: Abdomen/Pelvis CT 12/09/21 12:04 CT SCAN OF THE ABDOMEN AND PELVIS WITH IV CONTRAST CLINICAL HISTORY: Nausea and vomiting. Diarrhea. Reported history of Crohn's disease. COMPARISON STUDY: Abdominal CT dated 08/28/2020. TECHNIQUE: Following the IV administration of 95 cc of Optiray 350, CT scan of the abdomen and pelvis is performed from the lung bases to the proximal femora. Images are reviewed in the axial, sagittal, and coronal planes. IV contrast was administered without complication. A dose lowering technique was utilized adhering to the principles of ALARA. CT DOSE: 483.47 mGy.cm FINDINGS: Lung bases: The heart is normal in size and without pericardial effusion. Fat- containing Bochdalek hernias are seen at both lung bases. The lung bases are clear noting dependent atelectasis. There is a tiny hiatal hernia. Liver: The contrast-enhanced liver is normal in size, contour, and attenuation. There is no intrahepatic biliary ductal dilatation. The hepatic veins and portal veins are patent. Gallbladder: Surgically absent noting clips in the gallbladder fossa. Spleen: Normal in size and attenuation. Pancreas: Unremarkable. Adrenal glands: Unremarkable. Kidneys: The contrast enhanced kidneys are normal in size and without hydronephrosis. The kidneys enhance symmetrically. Abdominal vasculature: The abdominal aorta is normal in course and caliber. Bowel: There is postoperative change from ileocecal resection with ileocolic anastomosis. No bowel obstruction is identified. The appendix is surgically absent. There is minimal wall thickening and mucosal hyperemia seen involving the left colon. This extends from the distal transverse colon to the sigmoid end suggesting mild nonspecific colitis. There are scattered sigmoid diverticula without CT evidence of acute diverticulitis. There is no wall thickening or hyperemia of the small bowel loops. There is no evidence of fistula. No perianal disease is seen. Peritoneum: There is no intraperitoneal free air or abdominal ascites. There is a fat-containing periumbilical hernia. Lymphadenopathy: None. Pelvic viscera: The bladder, uterus, and adnexa are normal as visualized. A 2.9 cm cystic structure along the left adductor musculature is unchanged. Skeletal structures: The skeletal structures are osteopenic. Mild lumbosacral spondylosis is observed. No lytic or blastic lesions are seen. IMPRESSION: 1. Findings suggest a mild nonspecific colitis. This could be on an infectious or inflammatory basis and clinical correlation will be required. 2. There is postoperative change from ileocecal resection with ileocolic anastomosis. No bowel obstruction is identified. 3. Additional findings as above. ACT 112: Negative or not required by law. Electronically signed by: Vamshi Mckee M.D. 12/09/2021 2:41 PM Discharge Plan Visit Data Chief Complaint: Nausea ED Provider: Nirav Dumont Discharge Problem: Nausea, vomiting and diarrhea, Crohns disease Patient Disposition: Admitted As Inpatient Discharge Instructions Interventions: ED Discharge Assessment Last Done: 12/09/21 18:45 Forms Stand Alone Forms: [facility] Prescriptions Prescriptions: No Action Humira(CF) Pen 40 mg/0.4 mL pen injector kit 40 mg subcut .weekly Qty: 2 11RF diphenoxylate-atropine [Lomotil] 2.5-0.025 mg tablet 1 tab PO .COMPLEX PRN (Reason: diarrhea) Qty: 360 5RF Rx Instructions: 1 tab PO up to 8 times daily PRN; colesevelam [WelChol] 625 mg tablet 2,500 mg PO QPM Qty: 360 3RF diltiazem HCl 180 mg Capsule,Extended Release 24 Hr 180 mg PO QAM clonazepam [Klonopin] 0.5 mg Tablet 0.5 mg PO HS PRN (Reason: Anxiety) potassium chloride [Klor-Con 10] 10 mEq Tablet Extended Release 10 meq PO QAM ferrous sulfate 325 mg (65 mg iron) Tablet 325 mg PO DAILY metoprolol succinate 25 mg Tablet Extended Release 24 Hr 25 mg PO HS cranberry 400 mg Capsule 400 mg PO DAILY PRN (Reason: UTI) Multivitamin 50 Plus Tablet 1 tab PO QAM tolterodine 2 mg capsule,extended release 24hr 2 mg PO QAM venlafaxine 75 mg capsule,extended release 24hr 75 mg PO DAILY cetirizine [Allergy Relief (cetirizine)] 10 mg tablet 10 mg PO DAILY cyanocobalamin (vitamin B-12) [Vitamin B-12] 1,000 mcg tablet 1,000 mcg PO QAM zinc gluconate 50 mg tablet 50 mg PO QAM cholecalciferol (vitamin D3) 125 mcg (5,000 unit) capsule 125 mcg PO DAILY calcium carbonate-vitamin D3 [Calcium 600 + D(3)] 600 mg-10 mcg (400 unit) Tablet 1 tab PO DAILY omega 6-omt-gmm-fish oil [Fish Oil] 1,200 (144-216) mg capsule 1 cap PO BID pantoprazole 40 mg tablet,delayed release (DR/EC) 40 mg PO QAM Rx Instructions: take 1 tablet daily 30 minutes prior to breakfast dicyclomine 10 mg capsule 10 mg PO BID Referrals Referrals: Darnell Kevin MD [Primary Care Provider] -
--- NOTE | 2021-12-09 14:43 | CT Scan Report ---
CT SCAN OF THE ABDOMEN AND PELVIS WITH IV CONTRAST CLINICAL HISTORY: Nausea and vomiting. Diarrhea. Reported history of Crohn's disease. COMPARISON STUDY: Abdominal CT dated 08/28/2020. TECHNIQUE: Following the IV administration of 95 cc of Optiray 350, CT scan of the abdomen and pelvi s is performed from the lung bases to the proximal femora. Images are reviewed in the axial, sagittal , and coronal planes. IV contrast was administered without complication. A dose lowering technique wa s utilized adhering to the principles of ALARA. CT DOSE: 483.47 mGy.cm FINDINGS: Lung bases: The heart is normal in size and without pericardial effusion. Fat-containing Bochdalek he rnias are seen at both lung bases. The lung bases are clear noting dependent atelectasis. There is a tiny hiatal hernia. Liver: The contrast-enhanced liver is normal in size, contour, and attenuation. There is no intrahepa tic biliary ductal dilatation. The hepatic veins and portal veins are patent. Gallbladder: Surgically absent noting clips in the gallbladder fossa. Spleen: Normal in size and attenuation. Pancreas: Unremarkable. Adrenal glands: Unremarkable. Kidneys: The contrast enhanced kidneys are normal in size and without hydronephrosis. The kidneys enh ance symmetrically. Abdominal vasculature: The abdominal aorta is normal in course and caliber. Bowel: There is postoperative change from ileocecal resection with ileocolic anastomosis. No bowel ob struction is identified. The appendix is surgically absent. There is minimal wall thickening and muc osal hyperemia seen involving the left colon. This extends from the distal transverse colon to the si gmoid end suggesting mild nonspecific colitis. There are scattered sigmoid diverticula without CT isabell dence of acute diverticulitis. There is no wall thickening or hyperemia of the small bowel loops. The re is no evidence of fistula. No perianal disease is seen. Peritoneum: There is no intraperitoneal free air or abdominal ascites. There is a fat-containing charline umbilical hernia. Lymphadenopathy: None. Pelvic viscera: The bladder, uterus, and adnexa are normal as visualized. A 2.9 cm cystic structure a long the left adductor musculature is unchanged. Skeletal structures: The skeletal structures are osteopenic. Mild lumbosacral spondylosis is observed . No lytic or blastic lesions are seen. IMPRESSION: 1. Findings suggest a mild nonspecific colitis. This could be on an infectious or inflammatory basis and clinical correlation will be required. 2. There is postoperative change from ileocecal resection with ileocolic anastomosis. No bowel obstru ction is identified. 3. Additional findings as above. ACT 112: Negative or not required by law. Electronically signed by: Vamshi Mckee M.D. 12/09/2021 2:41 PM
[2021-12-09] MEDS ORDERED: ONDANSETRON INJ 2 MG/ML 2 ML VIAL IV STA (16:09)
[2021-12-09] MEDS ORDERED: LACTATED RINGER'S 1,000 ML IV SCH (16:15)
[2021-12-09] MEDS: POTASSIUM CHLORIDE / WTR 10 MEQ/100 ML PLCT IV SCH ×2 (17:00→17:59)
--- NOTE | 2021-12-09 17:27 | History & Physical Report ---
Date of Service December 09, 2021 Assessment & Plan (1) Nausea, vomiting and diarrhea: (2) Crohns disease: (3) Hypokalemia: (4) Increased anion gap metabolic acidosis: Plan This is a 61-year-old female who has significant past medical history of Crohn's disease status post small bowel resection in 1982 along with a partial colectomy in [address] Latif, HTN, history of SVT, hypertriglyceridemia, mild ARLENE, hyperhidrosis, chronic fatigue syndrome, depression with anxiety, chronic microscopic bacteruria who presents to ED secondary to ill feeling, nausea and vomiting and diarrhea x4 to 5 days. N/V/D Nonspecific Colitis hx of Crohns disease - stable on Humira, missed most recent dose on 12/06 Generalized Weakness admit to med tele conservative management for now ESR/CRP normal, ED provider discussed with GI who felt likely no active flare given no bloody diarrhea and normal ESR/CRP, would not give steroids pt follows with Dr. Latif, consult GI await stool studies clear liquid diet, can advance as tolerated tomorrow possible viral vs bacterial enteritis, likely self limiting consult PT/OT due to weakness NSS +20meq kcl x 1 L, re evaluate need for further IVF in a.m. continue welchol hold humira for now Hypokalemia Anion gap metabolic acidosis 2/2 diarrhea, vomiting replace IV hydration ECG Change normal trop, no cardiac complaints pt with subtle ecg changes in lateral leads compared to previous, may be 2/2 quality for completeness will repeat trop in 6 hrs from first, monitor on tele repeat ecg in a.m. Hx of PSVT HTN continue diltiazem, metoprolol Chronic Fatigue Syndrome Depression with anxiety continue Effexor, Klonopin Chronic benign microscopic bacteruria urine appears benign DVT ppx: SCDs for now, re evaluate daily need for chemical prophylaxis Dispo: med tele, likely d/c to home after PT/oT evals and after sx improving FULL CODE PCP: Dr. Kevin Pt was seen and examined in collaboration with Dr. Marie, please see addendum History of Present Illness Chief Complaint: N/V/D x 4-5 days. Primary Care Provider: Darnell Kevin MD This is a 61-year-old female who has significant past medical history of Crohn's disease status post small bowel resection in 1982 along with a partial colectomy in [address] Latif, HTN, history of SVT, hypertriglyceridemia, mild ARLENE, hyperhidrosis, chronic fatigue syndrome, depression with anxiety, chronic microscopic bacteruria who presents to ED secondary to ill feeling, nausea and vomiting and diarrhea x4 to 5 days. Symptoms started Friday evening. She denies sick contacts. She states that she developed loose diarrhea Friday night and then proceeded to have nausea and vomiting starting on . She admits to 2-3 bowel movements a day. They are loose and watery. She denies any hematochezia or melena. She does have history of Crohn's disease and did not take her weekly Humira on due to not feeling well. She has felt chilled but denies any documented fevers or sweats. She denies any abdominal pain. She generally feels weak and having difficulty tolerating her pills as well as food. She has not ate or drank since . She has also missed a lot of her medications. She denies dizziness, lightheadedness, syncope, chest pain, shortness of breath, cough, URI symptoms, hematemesis, abdominal pain, hematuria, increased urgency or frequency with urination. She did exhibit dysuria prior to arrival but since has resolved. In ED patient remained hemodynamically stable. Lab work notable for slightly elevated anion gap, K3.4. Her urinalysis relatively benign. CT abdomen pelvis suggest a mild nonspecific colitis which could be infectious or inflammatory. Postoperative change from ileocecal resection with ileocolic anastomosis noted. No bowel obstruction. Her ESR and CRP were normal. ED provider did discuss with gastroenterology service who did not recommend starting IV steroids due to likely viral enteritis. Allergies Allergy/AdvReac Type Severity Reaction Status Date / Time aspirin Allergy Severe TRIGGER Verified 12/09/21 12:06 FLARE UPS nitrofurantoin Allergy Unknown Unknown Verified 12/09/21 12:06 propoxyphene Allergy Unknown CAN TAKE Verified 12/09/21 12:06 TYLENOL Sulfa (Sulfonamide Allergy Unknown PT DOES Verified 12/09/21 12:06 Antibiotics) NOT REMEMBER REACTION trimethoprim Allergy Unknown Unknown Verified 12/09/21 12:06 meperidine AdvReac Mild NAUSEA Verified 12/09/21 12:06 oxycodone AdvReac Mild Unknown Verified 12/09/21 12:06 hydrocodone AdvReac Unknown Unknown Verified 12/09/21 12:06 sulfamethoxazole AdvReac Unknown Unknown Verified 12/09/21 12:06 [From ] Home Medications Medication Instructions Recorded Confirmed Type cranberry 400 mg capsule 400 mg PO DAILY PRN UTI 01/26/18 12/09/21 History rhqedkxjqaux-cfhkmjbw-jvserj 1 tab PO QAM 01/26/18 12/09/21 History tablet (Multivitamin 50 Plus tablet) clonazepam 0.5 mg tablet (Klonopin) 0.5 mg PO HS PRN Anxiety 10/25/19 12/09/21 History diltiazem HCl 180 mg capsule,24 180 mg PO QAM 10/25/19 12/09/21 History hr,extended release ferrous sulfate 325 mg (65 mg 325 mg PO DAILY 10/25/19 12/09/21 History iron) tablet metoprolol succinate 25 mg 25 mg PO HS 10/25/19 12/09/21 History tablet,extended release 24 hr potassium chloride 10 mEq 10 meq PO QAM 10/25/19 12/09/21 History tablet,extended release (Klor-Con) Humira(CF) Pen 40 mg/0.4 mL 40 mg (0.4 mL) subcut .weekly #2 ea 02/19/21 12/09/21 Rx subcutaneous kit (adalimumab) diphenoxylate-atropine 2.5 1 tab PO .COMPLEX PRN diarrhea 04/17/21 12/09/21 Rx mg-0.025 mg tablet (Lomotil) #360 tabs colesevelam 625 mg tablet (WelChol) 2,500 mg PO QPM #360 tabs 12/06/21 12/09/21 Rx calcium carbonate 600 mg-vitamin 1 tab PO DAILY 12/09/21 12/09/21 History D3 10 mcg (400 unit) tablet (Calcium 600 + D(3)) cetirizine 10 mg tablet (Allergy 10 mg PO DAILY 12/09/21 12/09/21 History Relief (cetirizine)) cholecalciferol (vitamin D3) 125 125 mcg PO DAILY 12/09/21 12/09/21 History mcg (5,000 unit) capsule cyanocobalamin (vitamin B-12) 1,000 mcg PO QAM 12/09/21 12/09/21 History 1,000 mcg tablet (Vitamin B-12) dicyclomine 10 mg capsule 10 mg PO BID 12/09/21 12/09/21 History omega 3-gcj-dqk-fish oil 1,200 mg 1 cap PO BID 12/09/21 12/09/21 History (144 mg-216 mg) capsule (Fish Oil) pantoprazole 40 mg tablet,delayed 40 mg PO QAM 12/09/21 12/09/21 History release tolterodine 2 mg capsule,extended 2 mg PO QAM 12/09/21 12/09/21 History release 24 hr venlafaxine 75 mg capsule,extended 75 mg PO DAILY 12/09/21 12/09/21 History release 24 hr zinc gluconate 50 mg tablet 50 mg PO QAM 12/09/21 12/09/21 History Past Med/Surg History Medical History (Updated 12/09/21 @ 17:33 by Dayan Palacio PA-C) Anxiety Chronic back pain Chronic kidney disease stage 3 -- follows with Nephrology [facility] ([place], [place]) Crohns disease Depression GERD (gastroesophageal reflux disease) Hypertension Scoliosis Vertigo hx Surgical History (Updated 12/09/21 @ 17:43 by Dayan Palacio PA-C) History of back surgery History of colonoscopy History of esophagogastroduodenoscopy (EGD) History of partial colectomy 2012 [facility] [place] 2/2 crohns S/P cholecystectomy S/P small bowel resection 1982 2 ft removed Family History (Updated 12/09/21 @ 17:43 by Dayan Palacio PA-C) Daughter Diabetes Nephrolithiasis Father Pancreatic cancer Social History Smoking Status: Never smoker Second Hand Exposure: No; Hx Alcohol Use: No Hx Substance Use: No Preferred Language: Ukrainian Communication Ability: Effective Windows Security Analyst Required: No Beliefs That Will Affect Care: None marital status: Current Living Situation: Spouse current occupational status: employed Feels Safe at Home: Yes Review of Systems Review of Systems: All systems reviewed & are unremarkable except as noted in HPI & below Physical Exam Physical Exam: Constitutional: WD/WN, vitals as above, NAD, sitting up in bed, pleasant, conversing easily Head: Normocephalic, Atraumatic Eyes: PERRL, conjunctivae normal, anicteric sclerae ENMT: external ear and nose normal, oropharynx normal Neck: trachea midline, no thyromegaly normal visual inspection Respiratory: normal respiratory effort, lungs clear to auscultation, no wheeze, rales, rhonchi. Normal insp/exp effort, no accessory muscle use Cardiovascular: RRR, no murmur, no edema Vessels: no JVD or carotid bruit Chest: normal inspection of chest Abdomen: Laparoscopic scars noted on abdomen, normal bowel sounds, soft, nontender, no hepatosplenomegaly Musculoskeletal: no cyanosis or clubbing, extremities motor strength 5/5 Skin: no rashes, warm and dry normal turgor Neurologic: PERRL, EOMI, accommodation nl, no face palsy, no dysarthria CN's II-XI intact bilaterally and moves all extremities Psychiatric: A+Ox3, euthymic affect Lymphatic: no cervical or axillary lymphadenopathy : deferred Results & Data Results & Data ([facility]) Vital Signs (Past 12 Hours) Vital Signs Temp Pulse Pulse Resp BP BP Pulse Ox 12/09/21 13:00 77 18 134/72 98 12/09/21 15:20 71 16 146/82 H 96 12/09/21 11:59 37.5 C 74 16 140/75 98 O2 Del Method 12/09/21 13:00 Room Air 12/09/21 15:20 12/09/21 11:59 Room Air Diagnostic Findings Abdomen/Pelvis CT 12/09/21 12:04 CT SCAN OF THE ABDOMEN AND PELVIS WITH IV CONTRAST CLINICAL HISTORY: Nausea and vomiting. Diarrhea. Reported history of Crohn's disease. COMPARISON STUDY: Abdominal CT dated 08/28/2020. TECHNIQUE: Following the IV administration of 95 cc of Optiray 350, CT scan of the abdomen and pelvis is performed from the lung bases to the proximal femora. Images are reviewed in the axial, sagittal, and coronal planes. IV contrast was administered without complication. A dose lowering technique was utilized adhering to the principles of ALARA. CT DOSE: 483.47 mGy.cm FINDINGS: Lung bases: The heart is normal in size and without pericardial effusion. Fat- containing Bochdalek hernias are seen at both lung bases. The lung bases are clear noting dependent atelectasis. There is a tiny hiatal hernia. Liver: The contrast-enhanced liver is normal in size, contour, and attenuation. There is no intrahepatic biliary ductal dilatation. The hepatic veins and portal veins are patent. Gallbladder: Surgically absent noting clips in the gallbladder fossa. Spleen: Normal in size and attenuation. Pancreas: Unremarkable. Adrenal glands: Unremarkable. Kidneys: The contrast enhanced kidneys are normal in size and without hydronephrosis. The kidneys enhance symmetrically. Abdominal vasculature: The abdominal aorta is normal in course and caliber. Bowel: There is postoperative change from ileocecal resection with ileocolic anastomosis. No bowel obstruction is identified. The appendix is surgically absent. There is minimal wall thickening and mucosal hyperemia seen involving the left colon. This extends from the distal transverse colon to the sigmoid end suggesting mild nonspecific colitis. There are scattered sigmoid diverticula without CT evidence of acute diverticulitis. There is no wall thickening or hyperemia of the small bowel loops. There is no evidence of fistula. No perianal disease is seen. Peritoneum: There is no intraperitoneal free air or abdominal ascites. There is a fat-containing periumbilical hernia. Lymphadenopathy: None. Pelvic viscera: The bladder, uterus, and adnexa are normal as visualized. A 2.9 cm cystic structure along the left adductor musculature is unchanged. Skeletal structures: The skeletal structures are osteopenic. Mild lumbosacral spondylosis is observed. No lytic or blastic lesions are seen. IMPRESSION: 1. Findings suggest a mild nonspecific colitis. This could be on an infectious or inflammatory basis and clinical correlation will be required. 2. There is postoperative change from ileocecal resection with ileocolic anastomosis. No bowel obstruction is identified. 3. Additional findings as above. ACT 112: Negative or not required by law. Electronically signed by: Vamshi Mckee M.D. 12/09/2021 2:41 PM Medications Administered Medication List Lactated Ringer's (Lr) 1,000 mls @ 80 mls/hr IV .[id number] SAMY Stop: 01/08/22 16:14 Last Admin: 12/09/21 16:29 Dose: 80 mls/hr Documented By: MARIS Discontinued Medications Sodium Chloride (Nss) 500 mls @ 999 mls/hr IV .Q31M STA Stop: 12/09/21 12:34 Last Infusion: 12/09/21 13:17 Dose: 0 mls/hr Documented By: Admin: 12/09/21 12:24 Dose: 999 mls/hr Documented By: TIEN Ioversol (Optiray 350 100ml) 95 ml IV ONCE ONE Stop: 12/09/21 14:28 Last Admin: 12/09/21 14:31 Dose: 95 ml Documented By: ART Ondansetron HCl (Ondansetron Inj 2 Mg/Ml 2 Ml Vial) 4 mg IV NOW STA Stop: 12/09/21 16:10 Last Admin: 12/09/21 16:29 Dose: 4 mg Documented By: MARIS ECG Rate (beats per minute): 75 Rhythm: normal sinus Findings: + PAC Additional Comments: slight st wave dep v4-6, most notable v4 likely 2/2 to poor quality ecg,w ill repeat COVID-19 Results Results COVID-19 Adm Lab Results: RBC 4.81 M/uL (3.93-5.22) 12/09/21 WBC 7.57 K/ul (4.8-10.8) 12/09/21 Hgb 14.3 g/dl (12.0-16.0) 12/09/21 Hct 42.6 % (34.1-44.9) 12/09/21 Plt Count 207 K/uL (130-400) 12/09/21 Neutrophils (%) (Auto) 73.3 % 12/09/21 Lymphocytes (%) (Auto) 19.4 % 12/09/21 Monocytes # (Auto) 0.46 K/uL (0.24-0.82) 12/09/21 Eosinophils # (Auto) 0.01 K/uL (0-0.50) 12/09/21 Immature Granulocyte % (Auto) 0.7 % 12/09/21 Neutrophils # (Auto) 5.55 K/uL (1.4-6.5) 12/09/21 Lymphocytes # (Auto) 1.47 K/uL (1.2-3.4) 12/09/21 Monocytes # (Auto) 0.46 K/uL (0.24-0.82) 12/09/21 Eosinophils # (Auto) 0.01 K/uL (0-0.50) 12/09/21 Basophils # (Auto) 0.03 K/uL (0-0.2) 12/09/21 Immature Granulocyte # (Auto) 0.05 K/uL (0.00-0.02) H 12/09 Na 138 mmol/L (136-145) 12/09/21 K 3.4 mmol/L (3.5-5.1) L 12/09/21 Cl 105 mmol/L (98-107) 12/09/21 CO2 17 mmol/L (21-32) L 12/09/21 Anion Gap 16 (3-11) H 12/09/21 BUN 19 mg/dl (6-23) 12/09/21 Creatinine 0.89 mg/dl (0.6-1.2) 12/09/21 BUN/Creatinine Ratio 21.3 (10-20) H 12/09/21 Glucose Level 98 mg/dl (70-99(Fasting)) 12/09/21 Ca 9.2 mg/dl (8.5-10.1) 12/09/21 Total Bilirubin 0.7 mg/dl (0.2-1.0) 12/09/21 AST/SGOT 22 U/L (13-39) 12/09/21 ALT/SGPT 16 U/L (7-52) 12/09/21 Alkaline Phosphatase 54 U/L (34-104) 12/09/21 Total Protein 7.8 gm/dl (6.0-8.3) 12/09/21 Albumin 4.0 gm/dl (3.4-5.0) 12/09/21 Globulin 3.8 gm/dl (2.5-4.0) 12/09/21 Albumin/Globulin Ratio 1.1 (0.9-2) 12/09/21 CRP < 0.50 mg/dl (0-0.5) 12/09/21 SARS-CoV-2, RNA, NAAT NEGATIVE (NEGATIVE) 12/09/21 Code Status & VTE Plan Code Status FULL CODE VTE Prophylaxis Plan VTE Prophylaxis will be ordered: Yes Supervising Physician Co-Signing Physician Notes Pt was seen and examined. Agreed with Dayan QUIGLEY exam, assessment and plan. 61-year-old female who has significant past medical history of Crohn's disease status post small bowel resection in 1982 along with a partial colectomy in [address] Latif, HTN, history of SVT, hypertriglyceridemia, mild ARLENE, hyperhidrosis, chronic fatigue syndrome, depression with anxiety, chronic microscopic presented to the ED secondary to ill feeling, nausea and vomiting and diarrhea for few days. She said that she had about 2-3 watery or loose BM per day. She said that she has not been able to keep anything in her stomach lately. She said that she has been drinking rebecca and ice pop. She denies dizziness, lightheadedness, syncope, abdominal pain, chest pain, shortness of breath, cough, URI symptoms, hematemesis, abdominal pain, hematuria. Her symptoms might be related to viral gastroenteritis, doubt about crohn's flares. CT abd/pelvis showed mild nonspecific colitis. received IVF in the ER, Will continue. Will hold on abx since pt is afebrile/no leukocytosis. ER provider discussed case with GI that recommended no steroid since her clinical presentation does not showed any active flare given no bloody diarrhea and normal ESR/CRP. Monitor electrolytes. Will continue monitor closely. MD Frank
[2021-12-09] MEDS ORDERED: ACETAMINOPHEN 325 MG TAB PO PRN (19:42)
[2021-12-09] MEDS ORDERED: MELATONIN 3 MG TAB PO PRN (19:42)
[2021-12-09] MEDS ORDERED: ONDANSETRON INJ 2 MG/ML 2 ML VIAL IV PRN (19:42)
[2021-12-09] MEDS ORDERED: NSS + 20MEQ KCL 20 MEQ/1,000 ML BAG IV SCH (20:30)
[2021-12-09] MEDS: METOPROLOL SUCC 25MG EXT REL TAB PO SCH (21:11)
[2021-12-09] MEDS: DICYCLOMINE HCL 10 MG CAP PO SCH (21:11)
[2021-12-09] MEDS: clonazePAM 0.5 MG TAB PO PRN (21:18)
--- NOTE | 2021-12-09 21:44 | Electrocardiogram Report ---
Test Reason : Blood Pressure : / mmHG Vent. Rate : 075 BPM Atrial Rate : 075 BPM P-R Int : 176 ms QRS Dur : 082 ms QT Int : 394 ms P-R-T Axes : 076 -04 006 degrees QTc Int : 439 ms Poor data quality, interpretation may be adversely affected Sinus rhythm with Premature ventricular complexes Nonspecific ST and T wave abnormality Abnormal ECG When compared with ECG of 26-JAN-2018 11:31, Nonspecific T wave abnormality, improved in Inferior leads T wave inversion now evident in Anterior leads Confirmed by Lul Allison ([id number]) on 12/09/2021 9:43:43 PM Referred By: REFERRED SELF Confirmed By:Lul Allison
[2021-12-10] MEDS: PANTOprazole 40 MG TAB PO SCH (06:00)
[2021-12-10 06:10] LABS: Basophils # (auto) 0.06 K/uL (0-0.2); Basophils % (auto) 0.8 %; Eosinophils # (auto) 0.06 K/uL (0-0.50); Eosinophils % (auto) 0.8 %; Hematocrit (blood only) 39.4 % (34.1-44.9); Hemoglobin 13.3 g/dl (12.0-16.0); Immature Granulocytes # (auto) 0.02 K/uL (0.00-0.02); Immature Granulocytes % (auto) 0.3 %; Lymphocytes # (auto) 2.72 K/uL (1.2-3.4); Lymphocytes % (auto) 36.2 %; Mean Corpuscular Hemoglobin 29.4 pg (25.0-34.0); Mean Corpuscular Hgb Conc 33.8 g/dL (32.0-36.0); Mean Corpuscular Volume 87.2 fL (80.0-100.0); Mean Platelet Volume 10.3 fL (9.4-12.3); Monocytes # (auto) 0.55 K/uL (0.24-0.82); Monocytes % (auto) 7.3 %; Neutrophils % (auto) 54.6 %; Platelet Count 197 K/uL (130-400); RDW Coefficient of Variation 12.8 % (11.5-14.5); RDW Standard Deviation 40.4 fL (36.4-46.3); Red Blood Count 4.52 M/uL (3.93-5.22); White Blood Count 7.51 K/ul (4.8-10.8)
[2021-12-10 06:43] LABS: Albumin Globulin Ratio 1.3 (0.9-2); Albumin Level 3.9 gm/dl (3.4-5.0); BUN Creatinine Ratio 18.3 (10-20); Bilirubin,Total 0.9 mg/dl (0.2-1.0); Calcium 8.7 mg/dl (8.5-10.1); Creatinine Clr Calc Pharmacy 76.1 ml/min; Est GFR (African American) 89.5 ml/min; Est GFR (Non-African American) 77.2 ml/min; Magnesium 1.9 mg/dl (1.7-2.4); Potassium 3.1 mmol/L (3.5-5.1); Total Protein 6.9 gm/dl (6.0-8.3)
[2021-12-10] MEDS: dilTIAZem ER 180 MG CAPCR PO SCH (08:34)
[2021-12-10] MEDS: DICYCLOMINE HCL 10 MG CAP PO SCH ×2 (08:34→21:18)
[2021-12-10] MEDS: TOLTERODINE TARTRATE LA 2 MG CAPCR PO SCH (08:35)
[2021-12-10] MEDS: VENLAFAXINE HCL XR 75 MG CAPXR PO SCH (08:35)
[2021-12-10] MEDS ORDERED: POTASSIUM CHLORIDE PWD 20 MEQ PACK PO SCH (09:00)
[2021-12-10] MEDS ORDERED: POTASSIUM CHLORIDE 10 MEQ TABCR PO SCH (09:00)
[2021-12-10 09:27] LABS: Adenovirus F 40/41 PCR Not Detected (NotDetected); Astrovirus PCR Not Detected (NotDetected); Campylobacter PCR Not Detected (NotDetected); Clostridium diff Toxin A/B PCR Not Detected (NotDetected); Cryptosporidium PCR Not Detected (NotDetected); Cyclospora cayetanensis PCR Not Detected (NotDetected); Entamoeba histolytica PCR Not Detected (NotDetected); Enteroaggregative E.coli(EAEC) Not Detected (NotDetected); Enteropathogenic E.coli (EPEC) Not Detected (NotDetected); Enterotoxigenic E.coli (ETEC) Not Detected (NotDetected); Giardia lamblia PCR Not Detected (NotDetected); Norovirus GI/GII PCR Not Detected (NotDetected); Plesiomonas shigelloides PCR Not Detected (NotDetected); Rotavirus A PCR Not Detected (NotDetected); Salmonella PCR Not Detected (NotDetected); Sapovirus PCR Not Detected (NotDetected); Shiga-like Toxin E.coli (STEC) Not Detected (NotDetected); Shigella/Enteroinvasive E.coli Not Detected (NotDetected); Vibrio cholerae PCR Not Detected (NotDetected); Vibrio species PCR Not Detected (NotDetected); Yersinia enterocolitica PCR Not Detected (NotDetected)
--- NOTE | 2021-12-10 11:29 | Hospitalist Progress Note ---
Date of Service December 10, 2021 Assessment & Plan (1) Nausea, vomiting and diarrhea: (2) Crohns disease: (3) Hypokalemia: (4) Increased anion gap metabolic acidosis: Plan This is a 61-year-old female who has significant past medical history of Crohn's disease status post small bowel resection in 1982 along with a partial colectomy in [address] Latif, HTN, history of SVT, hypertriglyceridemia, mild ARLENE, hyperhidrosis, chronic fatigue syndrome, depression with anxiety, chronic microscopic bacteruria who presents to ED secondary to ill feeling, nausea and vomiting and diarrhea x4 to 5 days. N/V/D Nonspecific Colitis likely Viral Gastroenteritis hx of Crohns disease - stable on Humira, missed most recent dose on 12/06 Generalized Weakness ESR/CRP normal, ED provider discussed with GI who felt likely no active flare given no bloody diarrhea and normal ESR/CRP GI bio fire negative, C. difficile negative CT abdomen and pelvis showed mild nonspecific colitis. Potassium3.1. Plan; Advance diet as tolerated. Patient able to tolerate clear liquid. On IV hydration currently. - GI on board; appreciate recommendation. Hypokalemia Anion gap metabolic acidosis Potassium3.1; replaced AGMA resolved after hydration ECG Change high-sensitivity troponin negative twice. EKG on admission showed normal sinus rhythm with PVC. Nonspecific T wave changes in lateral leads. Repeat EKG in a.m. shows improvement with no PVC Hx of PSVT HTN continue diltiazem, metoprolol Chronic Fatigue Syndrome Depression with anxiety continue Effexor, Klonopin Chronic benign microscopic bacteruria urine appears benign DVT ppx: SCDs for now, re evaluate daily need for chemical prophylaxis Dispo: med tele, FULL CODE PCP: Dr. Kevin Admission and Anticipated Discharge Date Admission Date: December 09, 2021 Subjective Patient seen and examined at bedside. She had 3 episode of loose bowel movement in the morning; no blood or mucus s een. She denies any abdominal pain. Review of Systems Review of Systems: All systems reviewed & are unremarkable except as noted in Subjective Physical Exam Physical Exam: Constitutional: WD/WN, vitals as above, NAD, sitting up in bed , pleasant, conversing easily Respiratory: normal respiratory effort, lungs clear to auscultation, no wheeze, rales, rhonchi. Normal insp/exp effort, no accessory muscle use Cardiovascular: RRR, no murmur, no edema Vessels: no JVD or carotid bruit Chest: normal inspection of chest Abdomen: Laparoscopic scars noted on abdomen, normal bowel sounds, soft, nontender, no hepatosplenomegaly Musculoskeletal: no cyanosis or clubbing, extremities motor strength 5/5 Skin: no rashes, warm and dry normal turgor Neurologic: PERRL, EOMI, accommodation nl, no face palsy, no dysarthria CN's II-XI intact bilaterally and moves all extremities Psychiatric: A+Ox3, euthymic affect Lymphatic: no cervical or axillary lymphadenopathy : deferred Results & Data Results & Data ([facility]) Vital Signs (Past 12 Hours) Vital Signs Temp Pulse Resp BP BP Pulse Ox O2 Del Method 12/10/21 11:12 36.7 C 66 18 145/78 H 98 Room Air 12/10/21 08:02 36.9 C 61 18 143/81 H 95 Room Air 12/10/21 03:06 36.7 C 95 H 19 143/81 H 93 Room Air 12/10/21 03:06 36.5 C 95 H 18 127/87 99 Room Air Laboratory Results Laboratory Results WBC 7.51 K/ul (4.8-10.8) 12/10/21 05:11 RBC 4.52 M/uL (3.93-5.22) 12/10/21 05:11 Hgb 13.3 g/dl (12.0-16.0) 12/10/21 05:11 Hct 39.4 % (34.1-44.9) 12/10/21 05:11 MCV 87.2 fL (80.0-100.0) 12/10/21 05:11 MCH 29.4 pg (25.0-34.0) 12/10/21 05:11 MCHC 33.8 g/dL (32.0-36.0) 12/10/21 05:11 RDW Std Deviation 40.4 fL (36.4-46.3) 12/10/21 05:11 RDW Coeff of Phuong 12.8 % (11.5-14.5) 12/10/21 05:11 Plt Count 197 K/uL (130-400) 12/10/21 05:11 MPV 10.3 fL (9.4-12.3) 12/10/21 05:11 Immature Gran % (Auto) 0.3 % 12/10/21 05:11 Neut % (Auto) 54.6 % 12/10/21 05:11 Lymph % (Auto) 36.2 % 12/10/21 05:11 Baxter % (Auto) 7.3 % 12/10/21 05:11 Eos % (Auto) 0.8 % 12/10/21 05:11 Baso % (Auto) 0.8 % 12/10/21 05:11 Neut # (Auto) 4.10 K/uL (1.4-6.5) 12/10/21 05:11 Lymph # (Auto) 2.72 K/uL (1.2-3.4) 12/10/21 05:11 Baxter # (Auto) 0.55 K/uL (0.24-0.82) 12/10/21 05:11 Eos # (Auto) 0.06 K/uL (0-0.50) 12/10/21 05:11 Baso # (Auto) 0.06 K/uL (0-0.2) 12/10/21 05:11 Immature Gran # (Auto) 0.02 K/uL (0.00-0.02) 12/10/21 05:11 Absolute Nucleated RBC Cancelled 12/09/21 12:17 Nucleated RBC % (auto) Cancelled 12/09/21 12:17 Neutrophils % (Manual) Cancelled 12/09/21 12:17 Band Neutrophils % Cancelled 12/09/21 12:17 Lymphocytes % (Manual) Cancelled 12/09/21 12:17 Prolymphocyte % Cancelled 12/09/21 12:17 Reactive Lymphs % (Man) Cancelled 12/09/21 12:17 Monocytes % (Manual) Cancelled 12/09/21 12:17 Eosinophils % (Manual) Cancelled 12/09/21 12:17 Basophils % (Manual) Cancelled 12/09/21 12:17 Metamyelocytes % (Man) Cancelled 12/09/21 12:17 Myelocytes % (Man) Cancelled 12/09/21 12:17 Promyelocytes % (Man) Cancelled 12/09/21 12:17 Blast Cells % (Manual) Cancelled 12/09/21 12:17 Plasma Cell % (Manual) Cancelled 12/09/21 12:17 Other Cells % Cancelled 12/09/21 12:17 Nucleated RBC % Cancelled 12/09/21 12:17 Neutrophils # (Manual) Cancelled 12/09/21 12:17 Band Neutrophils # Cancelled 12/09/21 12:17 Total Absolute Neuts Cancelled 12/09/21 12:17 Lymphocytes # (Manual) Cancelled 12/09/21 12:17 Prolymphocyte # Cancelled 12/09/21 12:17 Reactive Lymphs # Cancelled 12/09/21 12:17 Total Abs Lymphocytes Cancelled 12/09/21 12:17 Monocytes # (Manual) Cancelled 12/09/21 12:17 Eosinophils # (Manual) Cancelled 12/09/21 12:17 Basophils # (Manual) Cancelled 12/09/21 12:17 Metamyelocytes # (Man) Cancelled 12/09/21 12:17 Myelocytes # (Manual) Cancelled 12/09/21 12:17 Promyelocytes # (Man) Cancelled 12/09/21 12:17 Blast Cells # (Man) Cancelled 12/09/21 12:17 Plasma Cell # (Manual) Cancelled 12/09/21 12:17 Other Cells # Cancelled 12/09/21 12:17 Nucleated RBCs # (Man) Cancelled 12/09/21 12:17 Hypersegmented Neuts Cancelled 12/09/21 12:17 Hyposegmented Neuts Cancelled 12/09/21 12:17 Hypogranular Neuts Cancelled 12/09/21 12:17 Large Granular Lymphs Cancelled 12/09/21 12:17 # Lrg Granular Lymphs Cancelled 12/09/21 12:17 Hairy Cells Cancelled 12/09/21 12:17 Smudge Cells Cancelled 12/09/21 12:17 Toxic Granulation Cancelled 12/09/21 12:17 Toxic Vacuolation Cancelled 12/09/21 12:17 Dohle Bodies Cancelled 12/09/21 12:17 Luciana Rods Cancelled 12/09/21 12:17 Platelet Estimate Cancelled 12/09/21 12:17 Hypogranular Platelets Cancelled 12/09/21 12:17 Clumped Platelets Cancelled 12/09/21 12:17 Giant Platelets Cancelled 12/09/21 12:17 Platelet Satelliting Cancelled 12/09/21 12:17 RBC Morphology Cancelled 12/09/21 12:17 Polychromasia Cancelled 12/09/21 12:17 Hypochromasia Cancelled 12/09/21 12:17 Poikilocytosis Cancelled 12/09/21 12:17 Basophilic Stippling Cancelled 12/09/21 12:17 Anisocytosis Cancelled 12/09/21 12:17 Microcytosis Cancelled 12/09/21 12:17 Macrocytosis Cancelled 12/09/21 12:17 Spherocytes Cancelled 12/09/21 12:17 Pappenheimer Bodies Cancelled 12/09/21 12:17 Sickle Cells Cancelled 12/09/21 12:17 Target Cells Cancelled 12/09/21 12:17 Tear Drop Cells Cancelled 12/09/21 12:17 Ovalocytes Cancelled 12/09/21 12:17 Stomatocytes Cancelled 12/09/21 12:17 [place] Bodies Cancelled 12/09/21 12:17 Echinocytes Cancelled 12/09/21 12:17 Acanthocytes (Spur) Cancelled 12/09/21 12:17 Rouleaux Cancelled 12/09/21 12:17 RBC Agglutinates Cancelled 12/09/21 12:17 Schistocytes Cancelled 12/09/21 12:17 ESR 20 mm/hr (0-30) 12/09/21 13:00 Sezary Cell Cancelled 12/09/21 12:17 Sodium 139 mmol/L (136-145) 12/10/21 05:11 Potassium 3.1 mmol/L (3.5-5.1) L 12/10/21 05:11 Chloride 106 mmol/L (98-107) 12/10/21 05:11 Carbon Dioxide 26 mmol/L (21-32) 12/10/21 05:11 Anion Gap 7 (3-11) 12/10/21 05:11 BUN 15 mg/dl (6-23) 12/10/21 05:11 Creatinine 0.82 mg/dl (0.6-1.2) 12/10/21 05:11 Est Cr Clr Drug Dosing 76.1 ml/min 12/10/21 05:11 Est GFR ( Amer) 89.5 ml/min 12/10/21 05:11 Est GFR (Non-Af Amer) 77.2 ml/min 12/10/21 05:11 BUN/Creatinine Ratio 18.3 (10-20) 12/10/21 05:11 Glucose 81 mg/dl (70-99(Fasting)) 12/10/21 05:11 Calcium 8.7 mg/dl (8.5-10.1) 12/10/21 05:11 Magnesium 1.9 mg/dl (1.7-2.4) 12/10/21 05:11 Total Bilirubin 0.9 mg/dl (0.2-1.0) 12/10/21 05:11 AST 21 U/L (13-39) 12/10/21 05:11 ALT 15 U/L (7-52) 12/10/21 05:11 Alkaline Phosphatase 51 U/L (34-104) 12/10/21 05:11 Troponin I High Sens 8.7 pg/ml (0-14) 12/09/21 19:42 C-Reactive Protein < 0.50 mg/dl (0-0.5) 12/09/21 12:17 Total Protein 6.9 gm/dl (6.0-8.3) 12/10/21 05:11 Albumin 3.9 gm/dl (3.4-5.0) 12/10/21 05:11 Globulin 3.0 gm/dl (2.5-4.0) 12/10/21 05:11 Albumin/Globulin Ratio 1.3 (0.9-2) 12/10/21 05:11 Lipase 39 U/L (11-82) 12/09/21 12:17 Urine Color Yellow 12/09/21 13:41 Urine Appearance Clear (Clear) 12/09/21 13:41 Urine pH 5.5 (4.5-7.5) 12/09/21 13:41 Ur Specific [place] 1.011 (1.000-1.030) 12/09/21 13:41 Urine Protein Negative (Negative) 12/09/21 13:41 Urine Glucose (UA) Negative (Negative) 12/09/21 13:41 Urine Ketones Trace (Negative) H 12/09/21 13:41 Urine Blood 2+ (Negative) H 12/09/21 13:41 Urine Nitrite Negative (Negative) 12/09/21 13:41 Urine Bilirubin Negative (Negative) 12/09/21 13:41 Urine Urobilinogen Negative (Negative) 12/09/21 13:41 Ur Leukocyte Esterase Trace (Negative) H 12/09/21 13:41 Urine WBC (Auto) 1-5 /hpf (0-5) 12/09/21 13:41 Urine RBC (Auto) 5-10 /hpf (0-4) H 12/09/21 13:41 U Hyaline Cast (Auto) 0 /lpf (0-5) 12/09/21 13:41 U Epithel Cells (Auto) 10-20 /lpf (0-5) H 12/09/21 13:41 Urine Bacteria (Auto) Negative (Negative) 12/09/21 13:41 Stl C. cayetanensis PCR Not Detected (NotDetected) 12/10/21 08:03 Stool Rotavirus A PCR Not Detected (NotDetected) 12/10/21 08:03 Stl Adenov F 40/41 PCR Not Detected (NotDetected) 12/10/21 08:03 Stool Astrovirus (PCR) Not Detected (NotDetected) 12/10/21 08:03 Stool Campylobacter PCR Not Detected (NotDetected) 12/10/21 08:03 Stl C. diff Tox A/B PCR Not Detected (NotDetected) 12/10/21 08:03 Stool Cryptosporidium PCR Not Detected (NotDetected) 12/10/21 08:03 Stl E.coli Shiga Tox PCR Not Detected (NotDetected) 12/10/21 08:03 Stl Enterotoxigenic E PCR Not Detected (NotDetected) 12/10/21 08:03 Stool EPEC (PCR) Not Detected (NotDetected) 12/10/21 08:03 Stool EAEC (PCR) Not Detected (NotDetected) 12/10/21 08:03 Stl E. histolytica PCR Not Detected (NotDetected) 12/10/21 08:03 Stool Giardia Lamblia PCR Not Detected (NotDetected) 12/10/21 08:03 Stool Salmonella PCR Not Detected (NotDetected) 12/10/21 08:03 Stool Sapovirus (PCR) Not Detected (NotDetected) 12/10/21 08:03 Stl P. shigelloides PCR Not Detected (NotDetected) 12/10/21 08:03 Stl Shigella/EIEC PCR Not Detected (NotDetected) 12/10/21 08:03 St Y.enterocolitica PCR Not Detected (NotDetected) 12/10/21 08:03 Stool Vibrio (PCR) Not Detected (NotDetected) 12/10/21 08:03 Stl Vibrio cholerae PCR Not Detected (NotDetected) 12/10/21 08:03 Stl Norovirus GI/GII PCR Not Detected (NotDetected) 12/10/21 08:03 SARS-CoV-2, RNA, NAAT NEGATIVE (NEGATIVE) 12/09/21 12:21 Blood Parasites ID Cancelled 12/09/21 12:17 Impressions Abdomen/Pelvis CT 12/09/21 12:04 CT SCAN OF THE ABDOMEN AND PELVIS WITH IV CONTRAST CLINICAL HISTORY: Nausea and vomiting. Diarrhea. Reported history of Crohn's disease. COMPARISON STUDY: Abdominal CT dated 08/28/2020. TECHNIQUE: Following the IV administration of 95 cc of Optiray 350, CT scan of the abdomen and pelvis is performed from the lung bases to the proximal femora. Images are reviewed in the axial, sagittal, and coronal planes. IV contrast was administered without complication. A dose lowering technique was utilized adhering to the principles of ALARA. CT DOSE: 483.47 mGy.cm FINDINGS: Lung bases: The heart is normal in size and without pericardial effusion. Fat- containing Bochdalek hernias are seen at both lung bases. The lung bases are clear noting dependent atelectasis. There is a tiny hiatal hernia. Liver: The contrast-enhanced liver is normal in size, contour, and attenuation. There is no intrahepatic biliary ductal dilatation. The hepatic veins and portal veins are patent. Gallbladder: Surgically absent noting clips in the gallbladder fossa. Spleen: Normal in size and attenuation. Pancreas: Unremarkable. Adrenal glands: Unremarkable. Kidneys: The contrast enhanced kidneys are normal in size and without hydronephrosis. The kidneys enhance symmetrically. Abdominal vasculature: The abdominal aorta is normal in course and caliber. Bowel: There is postoperative change from ileocecal resection with ileocolic anastomosis. No bowel obstruction is identified. The appendix is surgically absent. There is minimal wall thickening and mucosal hyperemia seen involving the left colon. This extends from the distal transverse colon to the sigmoid end suggesting mild nonspecific colitis. There are scattered sigmoid diverticula without CT evidence of acute diverticulitis. There is no wall thickening or hyperemia of the small bowel loops. There is no evidence of fistula. No perianal disease is seen. Peritoneum: There is no intraperitoneal free air or abdominal ascites. There is a fat-containing periumbilical hernia. Lymphadenopathy: None. Pelvic viscera: The bladder, uterus, and adnexa are normal as visualized. A 2.9 cm cystic structure along the left adductor musculature is unchanged. Skeletal structures: The skeletal structures are osteopenic. Mild lumbosacral spondylosis is observed. No lytic or blastic lesions are seen. IMPRESSION: 1. Findings suggest a mild nonspecific colitis. This could be on an infectious or inflammatory basis and clinical correlation will be required. 2. There is postoperative change from ileocecal resection with ileocolic anastomosis. No bowel obstruction is identified. 3. Additional findings as above. ACT 112: Negative or not required by law. Electronically signed by: Vamshi Mckee M.D. 12/09/2021 2:41 PM (1) Crohns disease Digestive disease complication type: without complication Gastrointestinal tract location: unspecified location Qualified Code(s): K50.90 - Crohn's disease, unspecified, without complications
[2021-12-10] MEDS ORDERED: DIPHENOXYLATE/ATROPINE 2.5/0.025MG TAB PO PRN (12:07)
[2021-12-10] MEDS: LACTATED RINGER'S 1,000 ML IV SCH (12:09)
[2021-12-10] MEDS: POTASSIUM CHLORIDE / WTR 10 MEQ/100 ML PLCT IV SCH ×3 (19:12→22:58)
[2021-12-10] MEDS ORDERED: SODIUM CHLORIDE 0.65% NA SOLN 45 ML (OCEAN) PRN (21:07)
[2021-12-10] MEDS: METOPROLOL SUCC 25MG EXT REL TAB PO SCH (21:17)
[2021-12-10] MEDS: clonazePAM 0.5 MG TAB PO PRN (21:36)
--- NOTE | 2021-12-10 22:01 | Electrocardiogram Report ---
Test Reason : Blood Pressure : / mmHG Vent. Rate : 063 BPM Atrial Rate : 063 BPM P-R Int : 190 ms QRS Dur : 092 ms QT Int : 430 ms P-R-T Axes : 074 -14 055 degrees QTc Int : 440 ms Normal sinus rhythm Nonspecific ST abnormality Abnormal ECG When compared with ECG of 09-DEC-2021 11:55, Premature ventricular complexes are no longer Present Confirmed by Burke Fernanedz ([id number]) on 12/10/2021 10:00:53 PM Referred By: REFERRED SELF Confirmed By:Burke Fernandez
[2021-12-11] MEDS: LACTATED RINGER'S 1,000 ML IV SCH (00:11)
[2021-12-11] MEDS: PANTOprazole 40 MG TAB PO SCH (05:59)
[2021-12-11 06:49] LABS: Basophils # (auto) 0.08 K/uL (0-0.2); Basophils % (auto) 1.3 %; Eosinophils # (auto) 0.13 K/uL (0-0.50); Eosinophils % (auto) 2.1 %; Hematocrit (blood only) 37.1 % (34.1-44.9); Hemoglobin 12.5 g/dl (12.0-16.0); Immature Granulocytes # (auto) 0.01 K/uL (0.00-0.02); Immature Granulocytes % (auto) 0.2 %; Lymphocytes # (auto) 2.69 K/uL (1.2-3.4); Mean Corpuscular Hemoglobin 29.6 pg (25.0-34.0); Mean Corpuscular Hgb Conc 33.7 g/dL (32.0-36.0); Mean Corpuscular Volume 87.7 fL (80.0-100.0); Mean Platelet Volume 10.1 fL (9.4-12.3); Monocytes # (auto) 0.55 K/uL (0.24-0.82); Monocytes % (auto) 8.8 %; Neutrophils % (auto) 44.6 %; Platelet Count 174 K/uL (130-400); RDW Coefficient of Variation 12.6 % (11.5-14.5); RDW Standard Deviation 40.4 fL (36.4-46.3); Red Blood Count 4.23 M/uL (3.93-5.22); White Blood Count 6.26 K/ul (4.8-10.8)
[2021-12-11 07:15] LABS: BUN Creatinine Ratio 13.9 (10-20); Calcium 8.8 mg/dl (8.5-10.1); Creatinine Clr Calc Pharmacy 79.4 ml/min; Est GFR (African American) 93.6 ml/min; Est GFR (Non-African American) 80.8 ml/min; Potassium 3.3 mmol/L (3.5-5.1)
[2021-12-11] MEDS: DICYCLOMINE HCL 10 MG CAP PO SCH (07:48)
[2021-12-11] MEDS: TOLTERODINE TARTRATE LA 2 MG CAPCR PO SCH (07:48)
[2021-12-11] MEDS: dilTIAZem ER 180 MG CAPCR PO SCH (07:48)
[2021-12-11] MEDS: VENLAFAXINE HCL XR 75 MG CAPXR PO SCH (07:49)
--- NOTE | 2021-12-11 09:21 | Gastrointestinal Consultation ---
Date of Consultation December 11, 2021 Assessment & Plan (1) Nausea, vomiting and diarrhea: Given labs, clinical s/s, and resolution at this point, suspect this was viral. -Continue supportive care (2) Crohn's ileitis: -Check stool calprotectin prior to discharge. -Resume Humira WAYNE. -Will schedule colonoscopy as the outpatient as patient is due for this. Supervising Physician Co-Signing Physician Notes Agree with KATHIA Lawler as above Abd: Soft, NT, ND, +BS Continue current therapy and supportive care F/U in our office as outpatient as scheduled History of Present Illness Reason for Consultation: "history of Crohn's, now with enteritis, possibly viral" Attending Physician: Zev Ledezma MD History of Present Illness Patient is a 61 yo female with PMH of HTN, history of SVT, hypertriglyceridemia, mild ARELNE, hyperhidrosis, chronic fatigue syndrome, depression with anxiety, chronic microscopic bacteruria, and Crohn's ileitis s/p end to side ileocolonic anastomosis in 1982. She has been managed on biologic therapy since that time, most recently on Humira 40 mg injections weekly. Patient also has a history of IBS-D overlap. In recent years, her Crohn's has been noted to be in remission, but it is not uncommon for her to report 10-12 loose stools daily for which she was seen by a tertiary GI center. She has been on Lomotil, probiotics, Imodium, Pepto Bismol, fiber supplementation, Cholestyramine, and antispasmodics without successful control of her symptoms. She did find one particular bile acid sequestrant that controlled her diarrhea quite well and has been doing fine until last week. She presented to the ED on 12/09/21 after feeling ill with nausea, vomiting, & diarrhea x 4-5 days. She denies sick contacts. She noted 2-3 loose bowel movements daily. She did not take her Humira on due to feeling ill. She was [facility] with hypokalemia. Biofire was negative. CRP, ESR negative. Last colonoscopy in 2019. CT abdomen/pelvis shows a nonspecific colitis. The on-call GI provider was contacted earlier in the admission and advised that this was unlikely to be a Crohn's related issue given normal CRP and felt it was likely viral. Of note, there is only one documented bowel movement from her inpatient admission. She notes that her symptoms of nausea & vomiting were worse. She does tell me today that she is feeling much better at this point. Allergies Allergy/AdvReac Type Severity Reaction Status Date / Time aspirin Allergy Severe TRIGGER Verified 12/09/21 12:06 FLARE UPS nitrofurantoin Allergy Unknown Unknown Verified 12/09/21 12:06 propoxyphene Allergy Unknown CAN TAKE Verified 12/09/21 12:06 TYLENOL Sulfa (Sulfonamide Allergy Unknown PT DOES Verified 12/09/21 12:06 Antibiotics) NOT REMEMBER REACTION trimethoprim Allergy Unknown Unknown Verified 12/09/21 12:06 meperidine AdvReac Mild NAUSEA Verified 12/09/21 12:06 oxycodone AdvReac Mild Unknown Verified 12/09/21 12:06 hydrocodone AdvReac Unknown Unknown Verified 12/09/21 12:06 sulfamethoxazole AdvReac Unknown Unknown Verified 12/09/21 12:06 [From ] Home Medications Medication Instructions Recorded Confirmed Type cranberry 400 mg capsule 400 mg PO DAILY PRN UTI 01/26/18 12/09/21 History unziuwzxpxra-zesmuoec-mdkloq 1 tab PO QAM 01/26/18 12/09/21 History tablet (Multivitamin 50 Plus tablet) clonazepam 0.5 mg tablet (Klonopin) 0.5 mg PO HS PRN Anxiety 10/25/19 12/09/21 History diltiazem HCl 180 mg capsule,24 180 mg PO QAM 10/25/19 12/09/21 History hr,extended release ferrous sulfate 325 mg (65 mg 325 mg PO DAILY 10/25/19 12/09/21 History iron) tablet metoprolol succinate 25 mg 25 mg PO HS 10/25/19 12/09/21 History tablet,extended release 24 hr potassium chloride 10 mEq 10 meq PO QAM 10/25/19 12/09/21 History tablet,extended release (Klor-Con) Humira(CF) Pen 40 mg/0.4 mL 40 mg (0.4 mL) subcut .weekly #2 ea 02/19/21 12/09/21 Rx subcutaneous kit (adalimumab) colesevelam 625 mg tablet (WelChol) 2,500 mg PO QPM #360 tabs 12/06/21 12/09/21 Rx calcium carbonate 600 mg-vitamin 1 tab PO DAILY 12/09/21 12/09/21 History D3 10 mcg (400 unit) tablet (Calcium 600 + D(3)) cetirizine 10 mg tablet (Allergy 10 mg PO DAILY 12/09/21 12/09/21 History Relief (cetirizine)) cholecalciferol (vitamin D3) 125 125 mcg PO DAILY 12/09/21 12/09/21 History mcg (5,000 unit) capsule cyanocobalamin (vitamin B-12) 1,000 mcg PO QAM 12/09/21 12/09/21 History 1,000 mcg tablet (Vitamin B-12) dicyclomine 10 mg capsule 10 mg PO BID 12/09/21 12/09/21 History omega 1-zqz-vqf-fish oil 1,200 mg 1 cap PO BID 12/09/21 12/09/21 History (144 mg-216 mg) capsule (Fish Oil) pantoprazole 40 mg tablet,delayed 40 mg PO QAM 12/09/21 12/09/21 History release tolterodine 2 mg capsule,extended 2 mg PO QAM 12/09/21 12/09/21 History release 24 hr venlafaxine 75 mg capsule,extended 75 mg PO DAILY 12/09/21 12/09/21 History release 24 hr zinc gluconate 50 mg tablet 50 mg PO QAM 12/09/21 12/09/21 History diphenoxylate-atropine 2.5 1 tab PO Q4H PRN diarrhea #30 tabs 12/11/21 Rx mg-0.025 mg tablet Patient History Medical History Anxiety Chronic back pain Chronic kidney disease stage 3 -- follows with [facility]phrology [facility] [place] Crohns disease Depression GERD (gastroesophageal reflux disease) Hypertension Scoliosis Vertigo hx Surgical History History of back surgery History of colonoscopy History of esophagogastroduodenoscopy (EGD) [place] [facility] [place] crohns S/P cholecystectomy S/P small bowel resection 1982 2 ft removed Family History Daughter Diabetes Nephrolithiasis Father Pancreatic cancer Social History Smoking Status: Never smoker Second Hand Exposure: No; Hx Alcohol Use: No Hx Substance Use: No Preferred Language: Citizen [place] Communication Ability: Effective Gluing Crew Leader Required: Yes Beliefs That Will Affect Care: None marital status: Current Living Situation: Spouse Current Living Situation Comment: Lives at home w/ current occupational status: employed Feels Safe at Home: Yes Assistive Devices: None Review of Systems Constitutional: no fever and no chills Respiratory: no cough and no dyspnea Cardiovascular: no chest pain Gastrointestinal: + diarrhea/loose stools; no blood in stools Musculoskeletal: no problem reported Psychiatric: no problem reported Hematologic / Lymphatic: no unexplained weight loss Physical Exam Constitutional: well developed Respiratory: normal respiratory effort Cardiovascular: Rate/Rhythm: regular rate Gastrointestinal (Abdomen): Inspection/Auscultation: abdomen normal to inspection Musculoskeletal: Head/Neck/Chest: normocephalic Psychiatric: Orientation: alert and oriented x 3 Results & Data ([facility]) Vital Signs (Past 12 Hours) Vital Signs Temp Pulse Pulse Resp BP BP Pulse Ox 12/11/21 07:31 36.7 C 75 18 124/76 97 12/11/21 07:30 61 12/11/21 04:12 36.5 C 60 18 133/81 97 12/11/21 00:05 67 12/10/21 23:19 36.6 C 64 18 137/74 95 O2 Del Method 12/11/21 07:31 Room Air 12/11/21 07:30 12/11/21 04:12 Room Air 12/11/21 00:05 12/10/21 23:19 Room Air PG Care Time/CCT Total # of Minutes Spent Total Time Spent with Patient: Total time spent is greater than 50% in coordination of care (as documented) at patient's floor/unit and/or counseling patient: Coding Level of Care Code 22021 Inpt Consult Level 4 Diagnoses Nausea, vomiting and diarrhea R11.2; R19.7 Crohn's ileitis K50.00
--- NOTE | 2021-12-11 15:17 | Discharge Summary ---
Date of Service December 11, 2021 Admission HPI Per Admitting Provider This is a 61-year-old female who has significant past medical history of Crohn's disease status post small bowel resection in 1982 along with a partial colectomy in [address] Latif, HTN, history of SVT, hypertriglyceridemia, mild ARLENE, hyperhidrosis, chronic fatigue syndrome, depression with anxiety, chronic microscopic bacteruria who presents to ED secondary to ill feeling, nausea and vomiting and diarrhea x4 to 5 days. Symptoms started Friday evening. She denies sick contacts. She states that she developed loose diarrhea Friday night and then proceeded to have nausea and vomiting starting on . She admits to 2-3 bowel movements a day. They are loose and watery. She denies any hematochezia or melena. She does have history of Crohn's disease and did not take her weekly Humira on due to not feeling well. She has felt chilled but denies any documented fevers or sweats. She denies any abdominal pain. She generally feels weak and having difficulty tolerating her pills as well as food. She has not ate or drank since . She has also missed a lot of her medications. She denies dizziness, lightheadedness, syncope, chest pain, shortness of breath, cough, URI symptoms, hematemesis, abdominal pain, hematuria, increased urgency or frequency with urination. She did exhibit dysuria prior to arrival but since has resolved. In ED patient remained hemodyn amically stable. Lab work notable for slightly elevated anion gap, K3.4. Her urinalysis relatively benign. CT abdomen pelvis suggest a mild nonspecific colitis which could be infectious or inflammatory. Postoperative change from ileocecal resection with ileocolic anastomosis noted. No bowel obstruction. Her ESR and CRP were normal. ED provider did discuss with gastroenterology service who did not recommend starting IV steroids due to likely viral enteritis. Admission Exam Per Admitting Provider Constitutional: WD/WN, vitals as above, NAD, sitting up in bed, pleasant, conversing easily Head: Normocephalic, Atraumatic Eyes: PERRL, conjunctivae normal, anicteric sclerae ENMT: external ear and nose normal, oropharynx normal Neck: trachea midline, no thyromegaly normal visual inspection Respiratory: normal respiratory effort, lungs clear to auscultation, no wheeze, rales, rhonchi. Normal insp/exp effort, no accessory muscle use Cardiovascular: RRR, no murmur, no edema Vessels: no JVD or carotid bruit Chest: normal inspection of chest Abdomen: Laparoscopic scars noted on abdomen, normal bowel sounds, soft, nontender, no hepatosplenomegaly Musculoskeletal: no cyanosis or clubbing, extremities motor strength 5/5 Skin: no rashes, warm and dry normal turgor Neurologic: PERRL, EOMI, accommodation nl, no face palsy, no dysarthria CN's II-XI intact bilaterally and moves all extremities Psychiatric: A+Ox3, euthymic affect Lymphatic: no cervical or axillary lymphadenopathy : deferred Principal Diagnosis Viral gastroenteritis Discharge Exam Constitutional: WD/WN, vitals as above, NAD, sitting up in bed, pleasant, conversing easily Respiratory: normal respiratory effort, lungs clear to auscultation, no wheeze, rales, rhonchi. Normal insp/exp effort, no accessory muscle use Cardiovascular: RRR, no murmur, no edema Vessels: no JVD or carotid bruit Chest: normal inspection of chest Abdomen: Laparoscopic scars noted on abdomen, normal bowel sounds, soft, nontender, no hepatosplenomegaly Musculoskeletal: no cyanosis or clubbing, extremities motor strength 5/5 Skin: no rashes, warm and dry normal turgor Neurologic: PERRL, EOMI, accommodation nl, no face palsy, no dysarthria CN's II-XI intact bilaterally and moves all extremities Psychiatric: A+Ox3, euthymic affect Lymphatic: no cervical or axillary lymphadenopathy : deferred Discharge Data Allergies Allergy/AdvReac Type Severity Reaction Status Date / Time aspirin Allergy Severe TRIGGER Verified 12/09/21 12:06 FLARE UPS nitrofurantoin Allergy Unknown Unknown Verified 12/09/21 12:06 propoxyphene Allergy Unknown CAN TAKE Verified 12/09/21 12:06 TYLENOL Sulfa (Sulfonamide Allergy Unknown PT DOES Verified 12/09/21 12:06 Antibiotics) NOT REMEMBER REACTION trimethoprim Allergy Unknown Unknown Verified 12/09/21 12:06 meperidine AdvReac Mild NAUSEA Verified 12/09/21 12:06 oxycodone AdvReac Mild Unknown Verified 12/09/21 12:06 hydrocodone AdvReac Unknown Unknown Verified 12/09/21 12:06 sulfamethoxazole AdvReac Unknown Unknown Verified 12/09/21 12:06 [From [facility]] Consultations 12/09/21 16:38 ED Decision to Admit Stat 12/09/21 19:42 Consult Gastroenterology Routine Ordered Studies 12/09/21 12:04 CT abd pelvis IV con only Stat Hospital Course (1) Nausea, vomiting and diarrhea: (2) Crohns disease: (3) Hypokalemia: (4) Increased anion gap metabolic acidosis: Plan This is a 61-year-old female who has significant past medical history of Crohn's disease status post small bowel resection in 1982 along with a partial colectomy in [address] Latif, HTN, history of SVT, hypertriglyceridemia, mild ARLENE, hyperhidrosis, chronic fatigue syndrome, depression with anxiety, chronic microscopic bacteruria who presents to ED secondary to ill feeling, nausea and vomiting and diarrhea x4 to [address] abdomen and pelvis was done in the ED which showed mild nonspecific colitis. ESR and CRP were within normal limit. Patient was admitted to telemetry floor and was started on IV fluids and supportive care with electrolyte replacement. GI bio fire was done which was negative. Patient's symptoms were attributed to viral gastroenteritis. Patient's diarrhea improved over the course of the treatment. GI was consulted; recommended Lomotil for the diarrhea. Patient was discharged home with prescription for Lomotil and instruction to follow-up with her primary care doctor and GI. Total Time Total Time Spent Total Time Spent (In Minutes): 35 Total Time Includes: Examination of the Patient, Discharge Planning, Medication Reconciliation, Communication With Other Providers and Other Discharge Plan Discharge Items Patient Disposition: Home - Home Health Services Reason For Visit: GASTROENTERITIS Discharge Diagnosis: Viral Gastroenteritis Activity: Resume your previous activity Non-emergency contact: Primary Care Provider Call non-emergency contact if: you have any medication questions and your symptoms worsen Follow-up/Referrals: Darnell Kevin MD [Primary Care Provider] - (Date & Time 12/17/2021 11:20 AM Provider Darnell Kevin MD Department Family Medicine [facility] ) Diet: Regular Addtl Attending Provider Instructions: You were admitted to the hospital with viral gastroenteritis. Please continue oral hydration at home. Please take Lomotil as needed for the diarrhea. A prescription has been sent to your pharmacy. Please continue to take your other medication as before. Please follow-up with your primary care doctor in 1 to 2 weeks and follow-up with your GI doctor. Pending Studies at Discharge: No Stand-Alone Forms: [facility], Smoking Cessation Medications and DC Order Prescriptions: New diphenoxylate-atropine 2.5-0.025 mg Tablet 1 tab PO Q4H PRN (Reason: diarrhea) Qty: 30 0RF Continued Humira(CF) Pen 40 mg/0.4 mL pen injector kit 40 mg subcut .weekly Qty: 2 11RF colesevelam [WelChol] 625 mg tablet 2,500 mg PO QPM Qty: 360 3RF diltiazem HCl 180 mg Capsule,Extended Release 24 Hr 180 mg PO QAM clonazepam [Klonopin] 0.5 mg Tablet 0.5 mg PO HS PRN (Reason: Anxiety) potassium chloride [Klor-Con 10] 10 mEq Tablet Extended Release 10 meq PO QAM ferrous sulfate 325 mg (65 mg iron) Tablet 325 mg PO DAILY metoprolol succinate 25 mg Tablet Extended Release 24 Hr 25 mg PO HS cranberry 400 mg Capsule 400 mg PO DAILY PRN (Reason: UTI) Multivitamin 50 Plus Tablet 1 tab PO QAM tolterodine 2 mg capsule,extended release 24hr 2 mg PO QAM venlafaxine 75 mg capsule,extended release 24hr 75 mg PO DAILY cetirizine [Allergy Relief (cetirizine)] 10 mg tablet 10 mg PO DAILY cyanocobalamin (vitamin B-12) [Vitamin B-12] 1,000 mcg tablet 1,000 mcg PO QAM zinc gluconate 50 mg tablet 50 mg PO QAM cholecalciferol (vitamin D3) 125 mcg (5,000 unit) capsule 125 mcg PO DAILY calcium carbonate-vitamin D3 [Calcium 600 + D(3)] 600 mg-10 mcg (400 unit) Tablet 1 tab PO DAILY omega 6-dip-myk-fish oil [Fish Oil] 1,200 (144-216) mg capsule 1 cap PO BID pantoprazole 40 mg tablet,delayed release (DR/EC) 40 mg PO QAM Rx Instructions: take 1 tablet daily 30 minutes prior to breakfast dicyclomine 10 mg capsule 10 mg PO BID Discontinued diphenoxylate-atropine [Lomotil] 2.5-0.025 mg tablet 1 tab PO .COMPLEX PRN (Reason: diarrhea) Qty: 360 5RF Rx Instructions: 1 tab PO up to 8 times daily PRN; Discharge Orders: Discharge Order (Routine); Ordered 12/11/21 Ordered By: Zev Ledezma Admission Data Admit Date/Time: 12/10/21 15:27 Attending Provider: Zev Ledezma Admit Provider: Brandon Marie Primary Care Provider: Darnell Kevin Other Providers: Brandon Marie ; Vahid Beckwith Other Interventions: Discharge Summary Assessment (RN) Last Done: 12/11/21 14:36
--- NOTE | 2021-12-11 23:07 | Electrocardiogram Report ---
Test Reason : Blood Pressure : / mmHG Vent. Rate : 063 BPM Atrial Rate : 063 BPM P-R Int : 198 ms QRS Dur : 092 ms QT Int : 420 ms P-R-T Axes : 073 -06 047 degrees QTc Int : 429 ms Normal sinus rhythm Incomplete right bundle branch block Nonspecific ST abnormality Abnormal ECG When compared with ECG of 10-DEC-2021 05:34, No significant change was found Confirmed by Burke Fernandez ([id number]) on 12/11/2021 11:07:17 PM Referred By: REFERRED SELF Confirmed By:Burke Fernandez
== END 2021-12-11 15:34 | disposition home health service (06) ==
LOC: ED 11:48 → 2N 11:48 → SUATTDRO 17:30 → 2N 18:45